=== PATIENT | male | born 1935 | race Caucasian/White ===

== ENCOUNTER 2023-02-24 10:39 | Inpatient (IN) | payer MEDICARE, SELFPAY ==
[2023-02-24] VITALS (47 sets, daily range): BP systolic 85–166; BP diastolic 41–95; PULSE 61–107; RESP 14–40; TEMP 36.8–36.9; O2SAT 93–98
--- NOTE | 2023-02-24 10:45 | RT.EKG_ITS ---
APPROVED REPORT Exam: Resting ECG Reason for Exam: abd pain Patient Location: E HR:70 bpm ECG Measurements Heart Rate 70 [place] CO [id number] P [id number] QRSd 148 QRS -49 QT 471 T 67 QTc 508 Conclusion Afib/flutter and ventricular-paced rhythm...V-paced rhythm, A-rate>240
--- NOTE | 2023-02-24 10:59 | ED.GENADUL_ITS ---
Discharge Plan Disposition Patient Disposition: Admit to [facility] Discharge Details Clinical Impression: Choledocholithiasis with obstruction, Pancreatitis due to biliary obstruction Admit Date/Time: 02/24/23 14:20 Admit Provider: Olga Ruiz Attending Provider: Olga Ruiz Primary Care Provider: Unknown,Unknown ED Provider: Delmar Leon Discharge Data Discharge Date/Time-TO BE ENTERED AT DEPARTURE: 02/24/23 15:50 Medical Decision Making Patient presenting to the emergency department for chief complaint of abdominal pain. Patient reports over the past couple weeks intermittently he will get chills and nausea and have waves of abdominal pain. Only other associated symptom is some shortness of breath. Patient has history of hypertension, CHF, pacemaker, hyperlipidemia. Patient denies any vomiting, fever chills, urinary symptoms, chest pain or syncope. Physical exam shows slightly tachypneic patient, not hypoxic, mid abdominal tenderness with some guarding. Hypoactive bowel sounds, otherwise unremarkable exam. We will plan on checking labs, EKG, and CT imaging once labs are reviewed. Pending results will give Zofran and a little bit of morphine. Please see physician interpretation for full interpretation of EKG but upon my review patient is in a paced rhythm with underlying A-fib or flutter. Otherwise nondiagnostic EKG. pacemaker was interrogated and shows no worrisome events and that patient has underlying A-fib and flutter. Reviewed labs and patient does have a slight leukocytosis with WBC of 11.86 and elevated neutrophils. CMP shows normal electrolytes except for low mag at 1.5. Anion gap slightly elevated at 11.7 BUN of 24. Of significant concern though is patient's total bilirubin of 7.9, AST of 332, ALT of 242, and alk phos of 457, albumin is low at 3.2 and lipase is elevated at 375. Troponin is negative/nondetected. Will perform CT imaging of abd. patient was reassessed and did state significant improvement after Zofran and morphine. Did discuss alcohol use with patient and he denies any excessive use and states very minimal use. Review of CT imaging and radiologist interpretation shows significant finding of choledocholithiasis with a common bile duct stone measuring 9 mm. Will speak with general surgeon in regards to patient's case. Spoke with Dr. Ruiz general surgery who agreed to have patient admitted. Patient is in agreement with this plan of care. Patient was informed that there is high likelihood he will need to go to tertiary care center for an ERCP Imaging Data Radiologic Study: Imaging: CT Scan Radiologist's impression: Exam(s) PROCEDURE INFORMATION: Exam: CT Abdomen And Pelvis With Contrast Exam date and time: 02/24/2023 12:01 PM Age: 87 years old Clinical indication: Other: Abdominal pain, elevated lft's and lipase TECHNIQUE: Imaging protocol: Computed tomography of the abdomen and pelvis with contrast. Radiation optimization: All CT scans at this facility use at least one of these dose optimization techniques: automated exposure control; mA and/or kV adjustment per patient size (includes targeted exams where dose is matched to clinical indication); or iterative reconstruction. Contrast material: OMNI 350; Contrast volume: 100 ml; Contrast route: INTRAVENOUS (IV); COMPARISON: No relevant prior studies available. FINDINGS: Lungs: Mild left lower lobe atelectasis. Heart: Heart size is normal. No pericardial effusion. Pacemaker leads in the right heart. Mitral annular and aortic valvular calcifications. Liver: Mild left intrahepatic and common bile duct dilatation measuring up to 10 mm. Possible stone measuring 8 mm in the distal common bile duct. No hepatic mass. Gallbladder and bile ducts: Multiple gallbladder polyps versus layering gallstones. Study is somewhat limited due to motion artifact limiting evaluation of the gallbladder. No large pericholecystic fluid collection. Pancreas: No significant peripancreatic fat stranding or pseudocyst. Spleen: Lobular spleen with small calcified granulomas. Small volume of perisplenic fluid. No splenomegaly. Adrenal glands: Normal. No mass. Kidneys and ureters: Bilateral symmetric renal parenchymal contrast enhancement. No CT evidence for pyelonephritis. Stomach and bowel: Sigmoid diverticulosis without evidence for acute diverticulitis. Appendix: Appendix is normal in caliber. No periappendiceal edema. No findings to suggest acute appendicitis. Intraperitoneal space: See Kidneys and ureters finding. Vasculature: Unremarkable. No abdominal aortic aneurysm. Lymph nodes: Unremarkable. No enlarged lymph nodes. Urinary bladder: Unremarkable as visualized. Reproductive: Unremarkable as visualized. Bones/joints: Severe right hip osteoarthritis. No lytic or blastic osseous lesion. Soft tissues: Small fat only containing left inguinal hernia. No adjacent bowel involvement. IMPRESSION: 1. Possible choledocholithiasis with the distal common bile duct stone measuring 9 mm. Recommend follow-up right upper quadrant ultrasound and/or ERCP. 2. Small volume of perisplenic fluid of indeterminate significance. Comparison with prior studies recommended to determine chronicity. Lab Data Lab results reviewed: Yes I reviewed the patient's lab results. HPI General Mode of arrival: ambulatory . Date/Time Provider Initiated Documentation: 02/24/23 10:47 . Limitations to Documentation: no limitations . Information obtained by: patient, family and RN notes reviewed . History of Present Illness 87 year old M presents to the emergency department with the chief complaint of Abdominal pain, described as moderate, Quality is described as aching and sharp, and is localized to the abdomen. Patient reports no radiation. Patient started experiencing this week(s) (2) and it has been intermittent. No relieving factors improve symptom(s), No exacerbating factors reported . Patient did receive the following treatments prior to arrival, NSAID Related Data Home Medications Medication Instructions Recorded Confirmed acetaminophen 500 mg tablet 500 mg PO BID 06/16/15 02/24/23 (Tylenol Extra Strength) ascorbic acid (vitamin C) 1,000 mg 1,000 mg PO DAILY 06/16/15 02/24/23 tablet,extended release (Vitamin C ER) aspirin 81 mg chewable tablet 81 mg PO DAILY 06/16/15 02/24/23 calcium carbonate 500 mg calcium 1,500 mg PO DAILY 06/16/15 07/01/15 (1,250 mg) tablet (Calcium 500) ibuprofen 200 mg capsule 400 mg PO BID 06/16/15 02/24/23 multivitamin (Men's Multi-Vitamin 1 ea PO DAILY 06/16/15 02/24/23 tablet) simvastatin 20 mg tablet 20 mg PO HS 06/16/15 02/24/23 Allergies Allergy/AdvReac Type Severity Reaction Status Date / Time No Known Drug Allergies Allergy Unknown Other (See Unverified 02/24/23 15:47 Comment) General Stated Complaint: Abd Prob SAMUEL: 3 Review of Systems Constitutional Constitutional: Reports chills and Denies fever(s) Cardiovascular Cardiovascular: Denies chest pain and Reports dyspnea Respiratory Respiratory: Denies cough and Reports dyspnea Gastrointestinal Gastrointestinal: Reports as per HPI, Reports abdominal pain, Denies melena, Denies change in bowel habits, Denies constipation, Denies diarrhea, Reports nausea and Denies vomiting Genitourinary Genitourinary: Denies hematuria, Denies difficulty urinating, Denies urinary hesitancy, Denies urinary incontinence and Denies urinary urgency Integumentary/Breasts Skin/Breast: Denies rash PFSH All Active Problems (Updated 02/25/23 @ 08:07 by Delmar Leon NP) Pancreatitis due to biliary obstruction (Acute) Choledocholithiasis with obstruction (Acute) Hyperlipidemia (Acute) Hypertension (Chronic) CHF (congestive heart failure) (Chronic) Pacemaker (Acute) Social History Smoking/Tobacco Use Status: Former Tobacco Use Smoking risk assessment performed?: Yes Alcohol Intake: current Alcohol Intake frequency: holidays/special occasions only Alcohol type: other Drug use: Never Substance use type: does not use Housing: house Exam Const General: cooperative Orientation: alert, awake and oriented x3 Resp Effort & Inspection: able to speak in complete sentences, not labored and tachypneic Auscultation: clear to auscultation bilaterally Cardio Rate: regular rate Rhythm: abnormal rhythm irregularly irregular Heart Sounds: S1 normal and S2 normal GI Palpation: soft, not firm, guarding (mid abd ), no masses, no pulsatile masses, not rigid and tender periumbilically Auscultation: hypoactive bowel sounds Back/Spine/Pelvis Back: no CVA tenderness Neuro General: patient alert, patient awake, patient oriented x3, gait normal and moves all extremities Course Vital Signs Vital signs: Vital Signs Temperature 36.8 C 02/24/23 10:42 Pulse 89 02/24/23 10:42 Respiratory Rate 24 02/24/23 10:42 Blood Pressure 166/80 H 02/24/23 10:42 Pulse Oximetry 93 02/24/23 10:42 Temperature 36.8 C 02/24/23 10:42 Temperature Source Tympanic 02/24/23 10:42 Pulse 89 02/24/23 10:42 Respiratory Rate 24 02/24/23 10:42 Respiratory Effort Normal 02/24/23 10:47 Blood Pressure 166/80 H 02/24/23 10:42 Blood Pressure Position Sitting 02/24/23 10:42 Pulse Oximetry 93 02/24/23 10:42 Oxygen Delivery Method Room Air 02/24/23 10:42 Oxygen Flow Rate 0 02/24/23 10:42 Pain Level 8 02/24/23 10:42
[2023-02-24 11:10] LABS: Abs Immature Grans 0.05 10^3/uL (0.0-0.06); Absolute Eosinophil Count 0.04 10^3/uL (0.0-0.7); Absolute Lymphocyte Count 2.02 10^3/uL (1.2-3.4); Absolute Monocyte Count 0.77 10^3/uL (0.1-0.8); Absolute Neutrophil Count 8.95 10^3/uL (1.2-6.7); Basophils % 0.3; Eosinophils % 0.3; HCT 40.9 % (40.0-50.0); HGB 13.7 g/dL (13.5-17.5); Immature Grans % 0.4; MCH 28.8 pg (27.0-33.0); MCHC 33.5 % (32.0-36.0); MCV 86 fL (80-95); MPV 9.5 fL (8.0-11.0); Monocytes % 6.5; Neutrophils % 75.5; Platelet Count 296 10^3/uL (130-400); RBC 4.76 10^6/uL (4.36-5.78); RDW 15.1 % (11.8-14.1); RDW-SD 47.8 fL; WBC 11.86 10^3/uL (4.4-10.8)
[2023-02-24] MEDS: MORPHine 10 MG/ML VIAL 2 MG IVP (11:12)
[2023-02-24] MEDS: Ondansetron 4 MG/2 ML VIAL IVP (11:13)
[2023-02-24 11:14] LABS: Absolute Basophil Count 0.04 10^3/uL (0.0-0.2)
[2023-02-24 11:29] LABS: ALT 242 U/L (16-63); AST 332 U/L (15-37); Albumin 3.2 g/dL (3.4-5.0); Alkaline Phosphatase 457 U/L (46-116); Anion Gap 11.7 mmol/L (3-11); BUN 24 mg/dL (7-18); Bilirubin, Total 7.9 mg/dL (0.2-1.0); CO2 24.3 mmol/L (21.0-32.0); CREATININE 1.3 mg/dL (0.70-1.30); Chloride 102 mmol/L (98-107); Glucose 124 mg/dL (74-106); Magnesium 1.5 mg/dL (1.8-2.4); Potassium 4.1 mmol/L (3.5-5.1); Sodium 138 mmol/L (136-145); Total Protein 7.9 g/dL (6.4-8.2); Troponin I < 50 ng/L (<or=60)
--- NOTE | 2023-02-24 11:30 | DI.CT_ITS ---
Exam(s) CT ABDOMEN PELVIS W EXAM: CT ABDOMEN PELVIS W CLINICAL HISTORY: Abdominal pain, elevated LFTs and lipase. TECHNIQUE: Imaging Protocol: Axial computed tomography images with coronal and sagittal reformatted images were created and reviewed CONTRAST MATERIAL: Intravenous: Omnipaque 350 Contrast volume:100 ml Oral: / no COMPARISON: No exams were available for comparison FINDINGS: Exam limited by patient motion. ABDOMEN: Lung Bases: Pacemaker leads. Mitral valve calcification. Heart size normal. Liver: Normal density. No measurable mass. Gallbladder and biliary tract: 18 by 14 millimeter stone seen in the distal common bile duct causing dilatation of the common bile duct and intrahepatic ducts. Few additional stones are noted in the ga llbladder. The gallbladder is mildly distended and shows mild wall thickening although the evaluatio n is limited due to motion in this area. Pancreas: Normal density, no abnormal calcifications. No visible inflammatory process. Limited eval uation due to motion. No pancreatic ductal dilatation. Spleen: Calcified granulomas. Small amount of perisplenic fluid which could be a chronic finding. Kidneys: Normal size, contour and axis. No radiodense stones or obstructive uropathy. No suspicious m asses seen. Adrenal glands: No masses seen. Abdominal Aorta: Abdominal portion non-dilated. Prominent atherosclerotic calcifications. Soft tissues: Small fatty containing left inguinal hernia. PELVIS: Bladder: No gross wall thickening. No calculi.No focal mass. Small small right superior diverticulu m. Bowel: No obstruction. Sigmoid diverticulosis. No bowel wall thickening. Appendix normal. Peritoneal cavity: No ascites, collection or mesenteric inflammatory response. Bones: End-stage degenerative changes of the right hip. Advanced degenerative disc changes. Reproductive organs: Prostate slightly enlarged. Lymph nodes: Unremarkable. Impression: Obstructing common bile duct stone measuring 8 x 14 millimeters. Mild gallbladder wall thickening an d additional small gallbladder calculi. Pancreas unremarkable. RADIATION DOSE DELIVERED: Total DLP DATA REPOSITORY: All CT scans at this facility are submitted to the National Radiology Data Registry (NRDR) Dose Index Registry (DIR) with the [employer] (ACR). RADIATION OPTIMIZATION: All CT scans at this facility use at least one of these dose optimization te chniques: automated exposure control; mA and/or kV adjustment per patient size (includes targeted exa ms where dose is matched to clinical indication); or iterative reconstruction.
[2023-02-24 11:34] LABS: Lipase > 375 U/L (16-77)
[2023-02-24] MEDS: Normal Saline Flush 10 ML SYR IVP ×2 (11:56→20:54)
[2023-02-24] MEDS: Normal Saline - Diluent 50 ML VIAL IJ (11:57)
[2023-02-24] MEDS: Omnipaque 350 MG/ML 100 ML BTL IJ (11:57)
--- NOTE | 2023-02-24 13:08 | DI.VRAD_ITS ---
PROCEDURE INFORMATION: Exam: CT Abdomen And Pelvis With Contrast Exam date and time: 02/24/2023 12:01 PM Age: 87 years old Clinical indication: Other: Abdominal pain, elevated lft's and lipase TECHNIQUE: Imaging protocol: Computed tomography of the abdomen and pelvis with contrast. Radiation optimization: All CT scans at this facility use at least one of these dose optimization techniques: automated exposure control; mA and/or kV adjustment per patient size (includes targeted exams where dose is matched to clinical indication); or iterative reconstruction. Contrast material: OMNI 350; Contrast volume: 100 ml; Contrast route: INTRAVENOUS (IV); COMPARISON: No relevant prior studies available. FINDINGS: Lungs: Mild left lower lobe atelectasis. Heart: Heart size is normal. No pericardial effusion. Pacemaker leads in the right heart. Mitral annular and aortic valvular calcifications. Liver: Mild left intrahepatic and common bile duct dilatation measuring up to 10 mm. Possible stone measuring 8 mm in the distal common bile duct. No hepatic mass. Gallbladder and bile ducts: Multiple gallbladder polyps versus layering gallstones. Study is somewhat limited due to motion artifact limiting evaluation of the gallbladder. No large pericholecystic fluid collection. Pancreas: No significant peripancreatic fat stranding or pseudocyst. Spleen: Lobular spleen with small calcified granulomas. Small volume of perisplenic fluid. No splenomegaly. Adrenal glands: Normal. No mass. Kidneys and ureters: Bilateral symmetric renal parenchymal contrast enhancement. No CT evidence for pyelonephritis. Stomach and bowel: Sigmoid diverticulosis without evidence for acute diverticulitis. Appendix: Appendix is normal in caliber. No periappendiceal edema. No findings to suggest acute appendicitis. Intraperitoneal space: See Kidneys and ureters finding. Vasculature: Unremarkable. No abdominal aortic aneurysm. Lymph nodes: Unremarkable. No enlarged lymph nodes. Urinary bladder: Unremarkable as visualized. Reproductive: Unremarkable as visualized. Bones/joints: Severe right hip osteoarthritis. No lytic or blastic osseous lesion. Soft tissues: Small fat only containing left inguinal hernia. No adjacent bowel involvement. IMPRESSION: 1. Possible choledocholithiasis with the distal common bile duct stone measuring 9 mm. Recommend follow-up right upper quadrant ultrasound and/or ERCP. 2. Small volume of perisplenic fluid of indeterminate significance. Comparison with prior studies recommended to determine chronicity. Dictated and Authenticated by: Roge Soler MD. Ordering:DAVIN Jacobsen MD
[2023-02-24 14:02] LABS: Bilirubin Large (Negative); Blood Negative (Negative); Clarity Clear (Clear); Glucose Negative (Negative); Ketones Negative (Negative); Leukocyte Esterase Negative (Negative); Nitrite Negative (Negative); Specific Gravity <= 1.005 (1.005-1.025); pH 5.5 (5-8)
[2023-02-24 14:16] LABS: Bacteria Rare HPF (Negative); C & S Indicated? No; Casts Negative LPF (Negative); Crystals Moderate Uric Acid HPF (Negative); Epithelial Cells Rare HPF (Negative); Mucus Negative (Negative); RBC 0-2 HPF (0-2); WBC 0-2 HPF (0-5)
[2023-02-24] MEDS: PIPERACILLIN/TAZO 3.375 GM in Normal Saline 50 ML IVPB ×2 (15:43→20:54)
[2023-02-24] MEDS: Pantoprazole 40 MG VIAL IVP (15:43)
[2023-02-24] MEDS: Lactated Ringers 1,000 ML 125 ML IV (16:34)
[2023-02-24] MEDS: Enoxaparin 40 MG/0.4 ML SYR SC (16:34)
--- NOTE | 2023-02-24 16:38 | W.PM.HP.N ---
Date of service: 02/24/23 Time of Service: 16:39 Assessment and Plan Assessment and plan (1) Choledocholithiasis with obstruction: Status: Acute Assessment and plan: Mr. Fleming is a pleasant 87 year old male admitted with Gallstone pancreatitis and Choledocholithiasis. P: 1. Diet: Clears only for now 2. Supportive care with some hydration and pain control 3. Case discussed with GI AT [facility] [place] They asked for patient to be made NPO after midnight on Sunday for possible ERCP on Sunday. If patient deteriorates clinically or his T.Bili continues to rise then I will call GI back 4. Antibiotics Paln discussed with patient. he is in agreement (2) Pancreatitis due to biliary obstruction: Status: Acute (3) CHF (congestive heart failure): Status: Chronic History of Present Illness Consults Consult date: 02/24/23 Requesting physician: Delmar Leon Narrative: Mr. Fleming is a pleasant 87 year old male who comes in to the ER today with a couple of weeks of abdominal pain. He had one episode of N/V today. He has had no changes in bowel habits. Work up in the ER revealed a slight elevation in his WBC count. LFT's are moderately elevated and his bilirubin is very high at >8. He denies fevers or chills at home. CT scan of his abdomen and pelvis was done. I reviewedc the CT scan myself. It showed dilated intrahepatic ducts, elevated CBD with a stone at the distal end of the CBD. No fat starnding around the pancreas and no pseudocyst. 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 He has HTN listed on his problem list but he doesnt take any medication for it. Review of Systems Constitutional Constitutional: Reports anorexia, Denies fever(s), Denies headache(s) and Denies weight loss Eyes Eyes: Denies change in vision ENT Ears, Nose, Mouth, and Throat: Denies dysphagia and Denies headache(s) Cardiovascular Cardiovascular: Denies chest pain, Denies chest pain at rest, Denies irregular heart rhythm, Denies palpitations, Denies dyspnea and Denies dyspnea on exertion Respiratory Respiratory: Denies cough, Denies dyspnea and Denies dyspnea on exertion Gastrointestinal Gastrointestinal: Reports system reviewed and no additional complaints, except as documented and Denies dysphagia Genitourinary Genitourinary: Reports nocturia Musculoskeletal Musculoskeletal: Reports system reviewed and no additional complaints, except as documented Integumentary/Breasts Skin/Breast: Reports system reviewed and no additional complaints, except as documented Neurologic Neurologic: Reports system reviewed and no additional complaints, except as documented and Denies headache(s) Psychiatric Psychiatric: Reports system reviewed and no additional complaints, except as documented Endocrine Endocrine: Reports system reviewed and no additional complaints, except as documented and Denies palpitations Hematologic/Lymphatic Hematologic/Lymphatic: Reports system reviewed and no additional complaints, except as documented Allergic/Immunologic Allergic/Immunologic: Reports system reviewed and no additional complaints, except as documented PFSH All Active Problems (Updated 02/24/23 @ 16:47 by Olga Ruiz MD) Pancreatitis due to biliary obstruction (Acute) Choledocholithiasis with obstruction (Acute) Hyperlipidemia (Acute) Hypertension (Chronic) CHF (congestive heart failure) (Chronic) Pacemaker (Acute) Social History Smoking/Tobacco Use Status: Former Tobacco Use Smoking risk assessment performed?: Yes Alcohol Intake: current Alcohol Intake frequency: holidays/special occasions only Alcohol type: other Drug use: Never Substance use type: does not use Housing: house Meds Allergies and Home Medications Allergies Allergy/AdvReac Type Severity Reaction Status Date / Time No Known Drug Allergies Allergy Unknown Other (See Unverified 02/24/23 15:47 Comment) Home Medications Medication Instructions Recorded Confirmed Type acetaminophen 500 mg tablet 500 mg PO BID 06/16/15 02/24/23 History (Tylenol Extra Strength) ascorbic acid (vitamin C) 1,000 mg 1,000 mg PO DAILY 06/16/15 02/24/23 History tablet,extended release (Vitamin C ER) aspirin 81 mg chewable tablet 81 mg PO DAILY 06/16/15 02/24/23 History calcium carbonate 500 mg calcium 1,500 mg PO DAILY 06/16/15 07/01/15 History (1,250 mg) tablet (Calcium 500) ibuprofen 200 mg capsule 400 mg PO BID 06/16/15 02/24/23 History multivitamin (Men's Multi-Vitamin 1 ea PO DAILY 06/16/15 02/24/23 History tablet) simvastatin 20 mg tablet 20 mg PO HS 06/16/15 02/24/23 History Exam Const General: cooperative, comfortable and no acute distress Nutritional Appearance: overweight Orientation: alert and oriented x3 HENMT Head: normocephalic and atraumatic Resp Effort & Inspection: normal respiratory effort Auscultation: clear to auscultation bilaterally Cardio Rate: regular rate Rhythm: regular rhythm GI Inspection: normal to inspection Palpation: soft, no hepatosplenomegaly and tender (with voluntary guarding) in the RUQ Results Imaging Abdomen CT scan report/results: report reviewed and image reviewed CT scan - pelvis: report reviewed and image reviewed Labs 02/24/23 11:00 02/24/23 11:00 Labs: Laboratory Results - last 24 hr 02/24/23 02/24/23 02/24/23 11:00 11:00 13:55 WBC 11.86 H RBC 4.76 Hgb 13.7 Hct 40.9 MCV 86 MCH 28.8 MCHC 33.5 RDW 15.1 H Plt Count 296 MPV 9.5 Immature Gran % 0.4 Neutrophils % 75.5 Lymphocytes % 17.0 Monocytes % 6.5 Eosinophils % 0.3 Basophils % 0.3 Nucleated RBC % 0.0 Absolute Neutrophils 8.95 H Absolute Lymphocytes 2.02 Absolute Monocytes 0.77 Absolute Eosinophils 0.04 Absolute Basophils 0.04 Sodium 138 Potassium 4.1 Chloride 102 Carbon Dioxide 24.3 Anion Gap 11.7 H BUN 24 H Creatinine 1.3 Est GFR (CKD-EPI 2020) 53.50 Glucose 124 H Calcium 9.0 Magnesium 1.5 L Total Bilirubin 7.9 H AST 332 H ALT 242 H Alkaline Phosphatase 457 H Troponin I < 50 Total Protein 7.9 Albumin 3.2 L Lipase > 375 H Urine Color Yellow Urine Clarity Clear Urine pH 5.5 Ur Specific Webster <= 1.005 Urine Protein Trace H Urine Ketones Negative Urine Blood Negative Urine Nitrite Negative Urine Bilirubin Large H Urine Urobilinogen 1.0 H Ur Leukocyte Esterase Negative Urine RBC 0-2 Urine WBC 0-2 Ur Epithelial Cells Rare Urine Crystals Moderate Uric Acid Urine Bacteria Rare Urine Casts Negative Urine Mucus Negative Ur Culture Indicated? No Urine Glucose Negative Last Vital Signs Temp 98.4 F 02/24/23 16:07 Pulse 85 02/24/23 16:07 Resp 16 02/24/23 16:07 BP 96/56 L 02/24/23 16:07 Pulse Ox 96 02/24/23 16:07 Time Spent Time spent with Patient: 55-74 minutes Time was spent: preparing to see the patient(eg.review tests), obtaining and/or reviewing separately otained hiistory, ordering medications,tests, procedures, referring, communicating with other health critical care clinical nurse specialist, indepentently interpreting results, counseling the patient and care coordination
[2023-02-24 17:50] LABS: Troponin I < 50 ng/L (<or=60)
[2023-02-24] MEDS: MAGNESIUM SULFATE 2 GM/50 ML BAG IVPB (21:44)
[2023-02-24] MEDS: MORPHine 2 MG/ML SYR IVP (22:00)
[2023-02-25] MEDS: PIPERACILLIN/TAZO 3.375 GM in Normal Saline 50 ML IVPB ×4 (02:36→20:03)
[2023-02-25] MEDS: Normal Saline Flush 10 ML SYR IVP ×5 (02:41→20:04)
[2023-02-25] MEDS: Lactated Ringers 1,000 ML 125 ML IV ×2 (03:31→12:37)
[2023-02-25 04:50] VITALS: BP 115/68; PULSE 81; RESP 16; TEMP 37; O2SAT 94
[2023-02-25 06:31] LABS: Abs Immature Grans 0.02 10^3/uL (0.0-0.06); Absolute Basophil Count 0.02 10^3/uL (0.0-0.2); Absolute Eosinophil Count 0.07 10^3/uL (0.0-0.7); Absolute Lymphocyte Count 0.99 10^3/uL (1.2-3.4); Absolute Monocyte Count 0.83 10^3/uL (0.1-0.8); Absolute Neutrophil Count 6.06 10^3/uL (1.2-6.7); Basophils % 0.3; Eosinophils % 0.9; HCT 33.8 % (40.0-50.0); HGB 11.4 g/dL (13.5-17.5); Immature Grans % 0.3; Lymphocytes % 12.4; MCH 28.7 pg (27.0-33.0); MCHC 33.7 % (32.0-36.0); MCV 85 fL (80-95); MPV 9.8 fL (8.0-11.0); Monocytes % 10.4; Neutrophils % 75.7; Platelet Count 228 10^3/uL (130-400); RBC 3.97 10^6/uL (4.36-5.78); RDW 15.3 % (11.8-14.1); RDW-SD 47.8 fL; WBC 7.99 10^3/uL (4.4-10.8)
[2023-02-25 06:59] LABS: ALT 173 U/L (16-63); AST 221 U/L (15-37); Albumin 2.3 g/dL (3.4-5.0); Alkaline Phosphatase 357 U/L (46-116); Anion Gap 8.3 mmol/L (3-11); BUN 20 mg/dL (7-18); Bilirubin, Total 6.8 mg/dL (0.2-1.0); CO2 25.7 mmol/L (21.0-32.0); CREATININE 1.2 mg/dL (0.70-1.30); Calcium 8.4 mg/dL (8.5-10.1); Chloride 105 mmol/L (98-107); Estimated GFR 58.89 (mL/min/1.73m2); Glucose 90 mg/dL (74-106); Lipase 111 U/L (16-77); Potassium 3.9 mmol/L (3.5-5.1); Sodium 139 mmol/L (136-145); Total Protein 5.9 g/dL (6.4-8.2)
[2023-02-25 07:13] VITALS: BP 118/68; PULSE 65; RESP 16; TEMP 36.5; O2SAT 93
--- NOTE | 2023-02-25 12:16 | PDOC.CMIN ---
Date of service: 02/25/23 Time of Service: 12:17 Care Management Initial Assmt Initial Assessment REASON FOR HOSPITALIZATION:: Gallstone pancreatitis, choledocholithiasis PREVIOUS FUNCTIONAL STATUS/SOCIAL/FAMILY SUPPORTS:: Ramírez lives in [place] with his , Farzaneh. They have two children, one who lives with them, and the other lives nearby. He is independent at baseline. CURRENT FUNCTIONAL STATUS:: Ramírez was lying in bed when CM met with him. He reported that he feels good today. He was pleasant and engaged in conversation, although he is hard of hearing. He spoke highly of Dr. Zuñiga, who has helped his in the past, which is why he chose to come to [facility]. Per MD, Ramírez will likely go to [facility] down and back for an ERCP tomorrow. Ramírez stated that he is hoping to be discharged home after that trip, with outpatient follow up. CM will continue to follow. ADVANCE DIRECTIVES:: Not on file; CM will offer forms. Has patient been provided with info about the portal/API?: Yes Did the patient sign up for the portal?: No CODE STATUS:: Full Code INSURANCE COVERAGE / FINANCIAL ISSUES:: [employer] M[employer] replacement CURRENT HOME/COMMUNITY SERVICES/EQUIPMENT:: No known services. FWW. PRIMARY CARE PHYSICIAN:: Cordell Bailey. He is unsure which provider, as his recently left the practice. POTENTIAL DISCHARGE NEEDS:: Evaluations for further needs, follow up appointments. PATIENT/FAMILY EDUCATION NEEDS:: Review discharge instructions and limitations, discussion of self care needs including ask me three. ANTICIPATED BARRIERS TO DISCHARGE:: None identified. TRANSPORTATION:: Via private vehicle by his . PLAN:: Anticipate Ramírez will return home once medically cleared. His will drive him home via private vehicle. He will follow up with his PCP and discharge plan of care. CM will continue to follow. PFSH All Active Problems (Updated 02/25/23 @ 08:07 by Delmar Leon NP) Pancreatitis due to biliary obstruction (Acute) Choledocholithiasis with obstruction (Acute) Hyperlipidemia (Acute) Hypertension (Chronic) CHF (congestive heart failure) (Chronic) Pacemaker (Acute) Social History Smoking/Tobacco Use Status: Former Tobacco Use Smoking risk assessment performed?: Yes Alcohol Intake: current Alcohol Intake frequency: holidays/special occasions only Alcohol type: other Drug use: Never Substance use type: does not use Housing: house
--- NOTE | 2023-02-25 12:38 | W.PM.PROGNOT ---
Date of Service Date of service: 02/25/23 Time of Service: 12:38 Assessment and Plan Assessment and plan (1) Choledocholithiasis with obstruction: Status: Acute Assessment and plan: Mr. Fleming is a pleasant 87 year old male admitted with Gallstone pancreatitis and Choledocholithiasis. he is PAD #1 P: 1. Diet: Clears. NPO after midnight for possible transfer to [facility] for ERCP tomorrow 2. Continue supportive care. Will decrease IV fluids to 30cc/hr until midnight and then will increase to 80 cc/hr 3. Case discussed with GI AT [facility]. They asked for patient to be made NPO after midnight on Sunday for possible ERCP on Sunday. If patient deteriorates clinically or his T.Bili continues to rise then I will call GI back 4. Antibiotics- continue Zosyn 5. DVT prophilaxis- Lovenox and SCD's. Will hold Lovenox tomorrow morning 6. GI prophilaxis- Protonix IV 7. Will start on stool softeners Plan discussed with patient. He is in agreement with the plan (2) Pancreatitis due to biliary obstruction: Status: Acute (3) CHF (congestive heart failure): Status: Chronic Subjective Subjective Interval history since last seen: Ramírez is feeling well today. His pain is well controlled. He has had no N/V. He is tolerating clear liquids. Labs show decreased in his Lipase to 111. Wbc is normal. T. Bili is slightly decreased to 6.8 from 7.9. Electrolites are normal today. No BM on this admission Exam Const General: cooperative, comfortable and no acute distress Nutritional Appearance: overweight Orientation: alert and oriented x3 HENPA Head: normocephalic and atraumatic Other: Jaundiced Resp Effort & Inspection: normal respiratory effort Auscultation: clear to auscultation bilaterally Cardio Rate: regular rate Rhythm: regular rhythm GI Inspection: normal to inspection Palpation: soft, no hepatosplenomegaly and nontender Auscultation: normal bowel sounds Objective Last Vital Signs Temp 97.7 F 02/25/23 07:13 Pulse 65 02/25/23 07:13 Resp 16 02/25/23 07:13 BP 118/68 02/25/23 07:13 Pulse Ox 93 02/25/23 07:13 Laboratory Results - last 24 hr 02/24/23 02/24/23 02/25/23 13:55 17:15 06:05 WBC RBC Hgb Hct MCV MCH MCHC RDW Plt Count MPV Immature Gran % Neutrophils % Lymphocytes % Monocytes % Eosinophils % Basophils % Nucleated RBC % Absolute Neutrophils Absolute Lymphocytes Absolute Monocytes Absolute Eosinophils Absolute Basophils Sodium 139 Potassium 3.9 Chloride 105 Carbon Dioxide 25.7 Anion Gap 8.3 BUN 20 H Creatinine 1.2 Est GFR (CKD-EPI 2020) 58.89 Glucose 90 Calcium 8.4 L Magnesium Total Bilirubin 6.8 H AST 221 H ALT 173 H Alkaline Phosphatase 357 H Troponin I < 50 Total Protein 5.9 L Albumin 2.3 L Lipase 111 H Urine Color Yellow Urine Clarity Clear Urine pH 5.5 Ur Specific [place] <= 1.005 Urine Protein Trace H Urine Ketones Negative Urine Blood Negative Urine Nitrite Negative Urine Bilirubin Large H Urine Urobilinogen 1.0 H Ur Leukocyte Esterase Negative Urine RBC 0-2 Urine WBC 0-2 Ur Epithelial Cells Rare Urine Crystals Moderate Uric Acid Urine Bacteria Rare Urine Casts Negative Urine Mucus Negative Ur Culture Indicated? No Urine Glucose Negative 02/25/23 02/25/23 06:05 06:05 WBC 7.99 RBC 3.97 L Hgb 11.4 L D Hct 33.8 L MCV 85 MCH 28.7 MCHC 33.7 RDW 15.3 H Plt Count 228 MPV 9.8 Immature Gran % 0.3 Neutrophils % 75.7 Lymphocytes % 12.4 Monocytes % 10.4 Eosinophils % 0.9 Basophils % 0.3 Nucleated RBC % 0.0 Absolute Neutrophils 6.06 Absolute Lymphocytes 0.99 L Absolute Monocytes 0.83 H Absolute Eosinophils 0.07 Absolute Basophils 0.02 Sodium Potassium Chloride Carbon Dioxide Anion Gap BUN Creatinine Est GFR (CKD-EPI 2020) Glucose Calcium Magnesium 2.0 Total Bilirubin AST ALT Alkaline Phosphatase Troponin I Total Protein Albumin Lipase Urine Color Urine Clarity Urine pH Ur Specific [place] Urine Protein Urine Ketones Urine Blood Urine Nitrite Urine Bilirubin Urine Urobilinogen Ur Leukocyte Esterase Urine RBC Urine WBC Ur Epithelial Cells Urine Crystals Urine Bacteria Urine Casts Urine Mucus Ur Culture Indicated? Urine Glucose Time Spent with Patient Time Spent with Patient: 25-34 minutes Time was spent: preparing to see the patient(eg.review tests), obtaining and/or reviewing separately [facility] hiistory, ordering medications,tests, procedures, indepentently interpreting results and counseling the patient
[2023-02-25] MEDS: ACETAMINOPHEN 1,000 MG/100 ML BTL 400 MG IVPB (13:19)
[2023-02-25] MEDS: Pantoprazole 40 MG VIAL IVP (14:25)
[2023-02-25] MEDS: Enoxaparin 40 MG/0.4 ML SYR SC (14:29)
[2023-02-25 15:44] VITALS: BP 122/62; PULSE 63; RESP 16; TEMP 38.2; O2SAT 93
[2023-02-25 16:08] VITALS: O2SAT 93
--- NOTE | 2023-02-25 19:35 | NUR.NOTE ---
Nursing Note: Stopped pts LR @ 1920 per MD verbal orders to charge. This contradicts progress notes as of 02/25. Will begin LR @ 80mls after 0000 on 02/26.
[2023-02-25] MEDS: MORPHine 2 MG/ML SYR IVP (21:24)
[2023-02-26] MEDS: Normal Saline Flush 10 ML SYR IVP ×2 (00:01→02:08)
[2023-02-26] MEDS: Lactated Ringers 1,000 ML 80 ML IV ×2 (00:02→20:28)
[2023-02-26 00:09] VITALS: BP 144/78; PULSE 76; RESP 16; TEMP 38.2; O2SAT 94
[2023-02-26] MEDS: PIPERACILLIN/TAZO 3.375 GM in Normal Saline 50 ML IVPB ×3 (02:08→20:24)
[2023-02-26 06:34] LABS: Abs Immature Grans 0.03 10^3/uL (0.0-0.06); Absolute Basophil Count 0.02 10^3/uL (0.0-0.2); Absolute Eosinophil Count 0.13 10^3/uL (0.0-0.7); Absolute Lymphocyte Count 1.65 10^3/uL (1.2-3.4); Absolute Monocyte Count 0.83 10^3/uL (0.1-0.8); Absolute Neutrophil Count 7.07 10^3/uL (1.2-6.7); Basophils % 0.2; Eosinophils % 1.3; HCT 34.2 % (40.0-50.0); HGB 11.8 g/dL (13.5-17.5); Immature Grans % 0.3; MCH 29.6 pg (27.0-33.0); MCHC 34.5 % (32.0-36.0); MCV 86 fL (80-95); MPV 10.1 fL (8.0-11.0); Monocytes % 8.5; Neutrophils % 72.7; Platelet Count 227 10^3/uL (130-400); RBC 3.98 10^6/uL (4.36-5.78); RDW-SD 47.5 fL; WBC 9.73 10^3/uL (4.4-10.8)
[2023-02-26 06:52] LABS: ALT 124 U/L (16-63); AST 112 U/L (15-37); Albumin 2.3 g/dL (3.4-5.0); Alkaline Phosphatase 335 U/L (46-116); BUN 13 mg/dL (7-18); Bilirubin, Total 3.8 mg/dL (0.2-1.0); CREATININE 1.1 mg/dL (0.70-1.30); Chloride 104 mmol/L (98-107); Estimated GFR 65.38 (mL/min/1.73m2); Glucose 89 mg/dL (74-106); Lipase 63 U/L (16-77); Potassium 3.7 mmol/L (3.5-5.1); Sodium 138 mmol/L (136-145); Total Protein 6.1 g/dL (6.4-8.2)
[2023-02-26 06:56] LABS: Calcium 8.4 mg/dL (8.5-10.1)
[2023-02-26 07:08] VITALS: BP 169/81; PULSE 64; RESP 16; TEMP 36.6; O2SAT 96
--- NOTE | 2023-02-26 09:07 | PGE_ITS ---
Date of Service Date of service: 02/26/23 Time of Service: 09:07 Assessment and Plan Assessment and plan (1) Pancreatitis due to biliary obstruction: Status: Acute Assessment and plan: lipase is nl (2) Choledocholithiasis with obstruction: Status: Acute Assessment and plan: LFT's are still high but trending down tbil is 3.8 (5.5 yest) NPO ERCP today (3) Hyperlipidemia: Status: Acute (4) Hypertension: Status: Chronic (5) CHF (congestive heart failure): Status: Chronic Assessment and plan: echo ordered for am (6) Pacemaker: Status: Acute Subjective Subjective Interval history since last seen: Pt seen adn examined. Feeling ok. He is still requiring pain meds regularly. no headaches. No CP or SOB. no productive cough. no dysuria. no leg pain or swelling. His last BM was prior to coming into the hospital. no N/v. Exam Const Other: PHYSICAL EXAM GENERAL APPEARANCE: Alert, healthy appearance, oriented, x 3,? in no acute distress HYDRATION: Well hydrated HEAD, EYES, EARS, NECK, THROAT: Head is normocephalic, pupils equal, round, reactive to light and accommodation, ocular movement intact, sclera clear and no jaundice. ?Dentition intact. LUNGS: normal respiration/normal chest excursion. ?Clear to auscultation bilaterally. ?No wheeze. ?HEART: Regular rate and rhythm. no murmurs EXTREMITY: No edema or cyanosis.? no leg pain, redness, swelling.? ABDOMEN: soft and non-tender to palpation.? Normal bowel sounds.? .? Objective Last Vital Signs Temp 36.6 C 02/26/23 07:08 Pulse 64 02/26/23 07:08 Resp 16 02/26/23 07:08 BP 169/81 H 02/26/23 07:08 Pulse Ox 96 02/26/23 07:08 Laboratory Results - last 24 hr 02/25/23 02/26/23 02/26/23 06:05 06:12 06:12 WBC 9.73 RBC 3.98 L Hgb 11.8 L Hct 34.2 L MCV 86 MCH 29.6 MCHC 34.5 RDW 15.0 H Plt Count 227 MPV 10.1 Immature Gran % 0.3 Neutrophils % 72.7 Lymphocytes % 17.0 Monocytes % 8.5 Eosinophils % 1.3 Basophils % 0.2 Nucleated RBC % 0.0 Absolute Neutrophils 7.07 H Absolute Lymphocytes 1.65 Absolute Monocytes 0.83 H Absolute Eosinophils 0.13 Absolute Basophils 0.02 Sodium 138 Potassium 3.7 Chloride 104 Carbon Dioxide 25.0 Anion Gap 9.0 BUN 13 Creatinine 1.1 Est GFR (CKD-EPI 2020) 65.38 Glucose 89 Calcium 8.4 L Magnesium 2.0 Total Bilirubin 3.8 H AST 112 H ALT 124 H Alkaline Phosphatase 335 H Total Protein 6.1 L Albumin 2.3 L Lipase 63 Basic Metabolic Sodium 138 mmol/L (136-145) 02/26/23 Potassium 3.7 mmol/L (3.5-5.1) 02/26/23 Chloride 104 mmol/L (98-107) 02/26/23 Carbon Dioxide 25.0 mmol/L (21.0-32.0) 02/26/23 BUN 13 mg/dL (7-18) 02/26/23 Creatinine 1.1 mg/dL (0.70-1.30) 02/26/23 Glucose 89 mg/dL (74-106) 02/26/23 CBC White Blood Count 9.73 10^3/uL (4.4-10.8) 02/26/23 Red Blood Count 3.98 10^6/uL (4.36-5.78) L 02/26/23 Hemoglobin 11.8 g/dL (13.5-17.5) L 02/26/23 Hematocrit 34.2 % (40.0-50.0) L 02/26/23 Mean Corpuscular Volume 86 fL (80-95) 02/26/23 Mean Corpuscular Hemoglobin 29.6 pg (27.0-33.0) 02/26/23 Mean Corpuscular Hemoglobin Concent 34.5 % (32.0-36.0) 02/13 11/05 Red Cell Distribution Width 15.0 % (11.8-14.1) H 02/26/23 Platelet Count 227 10^3/uL (130-400) 02/26/23 Mean Platelet Volume 10.1 fL (8.0-11.0) 02/26/23 Neutrophils % 72.7 02/26/23 Lymphocytes % 17.0 02/26/23 Monocytes % 8.5 02/26/23 Eosinophils % 1.3 02/26/23 Basophils % 0.2 02/26/23 Immature Granulocytes % 0.3 02/26/23 Comprehensive Metabolic Panel Sodium 138 mmol/L (136-145) 02/26/23 06:12 Potassium 3.7 mmol/L (3.5-5.1) 02/26/23 06:12 Chloride 104 mmol/L (98-107) 02/26/23 06:12 Carbon Dioxide 25.0 mmol/L (21.0-32.0) 02/26/23 06:12 BUN 13 mg/dL (7-18) 02/26/23 06:12 Creatinine 1.1 mg/dL (0.70-1.30) 02/26/23 06:12 Glucose 89 mg/dL (74-106) 02/26/23 06:12 Calcium 8.4 mg/dL (8.5-10.1) L 02/26/23 06:12 Total Bilirubin 3.8 mg/dL (0.2-1.0) H 02/26/23 06:12 ALT 124 U/L (16-63) H 02/26/23 06:12 AST 112 U/L (15-37) H 02/26/23 06:12 Alkaline Phosphatase 335 U/L (46-116) H 02/26/23 06:12 Total Protein 6.1 g/dL (6.4-8.2) L 02/26/23 06:12 Albumin 2.3 g/dL (3.4-5.0) L 02/26/23 06:12 Diabetes results Glucose 89 mg/dL (74-106) 02/26/23 BUN 13 mg/dL (7-18) 02/26/23 Creatinine 1.1 mg/dL (0.70-1.30) 02/26/23 Est GFR (CKD-EPI 2020) 65.38 (mL/min/1.73m2) 02/26/23 Sodium 138 mmol/L (136-145) 02/26/23 Potassium 3.7 mmol/L (3.5-5.1) 02/26/23 Chloride 104 mmol/L (98-107) 02/26/23 Carbon Dioxide 25.0 mmol/L (21.0-32.0) 02/26/23 Calcium 8.4 mg/dL (8.5-10.1) L 02/26/23 AST 112 U/L (15-37) H 02/26/23 ALT 124 U/L (16-63) H 02/26/23 Total Protein 6.1 g/dL (6.4-8.2) L 02/26/23 Albumin 2.3 g/dL (3.4-5.0) L 02/26/23 Time Spent with Patient Time Spent with Patient: 25-34 minutes Time was spent: preparing to see the patient(eg.review tests), obtaining and/or reviewing separately otained hiistory, ordering medications,tests, procedures, referring, communicating with other health health care sanitary technician, indepentently interpreting results, counseling the patient and care coordination
--- NOTE | 2023-02-26 09:30 | DI.US_ITS ---
APPROVED REPORT EXAM: Comprehensive 2D, Doppler, and color-flow Echocardiogram Patient Location: In-Patient Room/Bed: [address] Selector: Salomon Khan RDCS Indications: CHF, HTN, HYPERLIPIDEMIA, GALLSTONES, PACEMAKER Other Information Study Quality: Adequate Conclusion Normal left ventricular wall thickness and chamber size. Ejection fraction is 55 to 60%. Wall motio n is normal. Normal right ventricular size and function Both atria are normal in size Device lead noted in the right heart Aortic valve is mildly sclerotic and trileaflet without stenosis or regurgitation Mildly thickened mitral leaflets, mitral annular calcification, mild mitral regurgitation Normal tricuspid valve with mild regurgitation. 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 Wall motion Left Ventricle The left ventricle is normal size. The left ventricular systolic function is normal. The left ventric ular ejection fraction is within the normal range. There is normal left ventricular wall thickness. T here is normal LV segmental wall motion. There is no ventricular septal defect visualized. LVEF is 55 -60%. Right Ventricle The right ventricle is normal size. The right ventricular systolic function is normal. The RVSP is 37 .7 mmHg. Pacemaker lead is present in the right ventricle. Atria The left atrium size is normal. The right atrium size is normal. The interatrial septum is intact wit h no evidence for an atrial septal defect. Aortic Valve The Aortic valve is mildly sclerotic. Aortic valve is trileaflet. There is no aortic valvular stenosi s. No aortic regurgitation is present. Mitral Valve Mitral valve leaflets are mildly thickened. Moderate mitral annular calcification. No evidence of neymar ral valve stenosis. Mild mitral regurgitation. Tricuspid Valve The tricuspid valve is normal in structure. There is no tricuspid valve stenosis. Mild tricuspid regu rgitation. Pulmonic Valve The pulmonary valve is normal in structure. There is no pulmonic valvular stenosis. Mild pulmonic reg urgitation. Great Vessels The aortic root is normal in size. The ascending aorta is mildly dilated. Aortic arch is not well vis ualized. IVC is normal in size and collapses >50% with inspiration. Pericardium There is no pericardial effusion. 2D Dimensions IVSD d PLAX 1.01 cm M: 0.6-1.2 LV Vol A2C d MOD 110.8 mL LVPW d PLAX 1.00 cm M: 0.6 - 1.2 LV EF A2C MOD 61.5 % LVID d PLAX 4.45 cm M: 4.2 - 5.8 LVDs 3.10 cm M: 2.5 - 4.0 Ao Root d 3.45 cm M: 3.1 - 3.7 Ao Asc Diam d 3.60 cm M: 2.6 - 3.4 LV EF Teichholz 57.0 % FS 29.70 % LV Diastology E/A Ratio 0.7 MV E Vmax 1.21 (0.4-1.3 m/s) MV A Vmax 1.65 (0.4-1.3 m/s) Aortic Valve LVOT Vmax 1.25 m/s LVOT Peak Grad 6.3 mmHg LVOT Mean Grad 3.6 mmHg AoV Peak Grad 13.0 mmHg AoV Mean Grad 7.0 mmHg Mitral Valve MV DT 461 (160-240 msec) Pulmonary Valve PV Mean Grad 1.5 mmHg RVOT Peak Gr. 1.10 mmHg RVOT Mean Gr. 0.45 mmHg RVOT VTI 0.092 m RVOT Vmax 0.53 m/s Tricuspid Valve TR Peak Grad 34.7 mmHg RA Pressure 3.00 mmHg RVSP (TR) 37.7 mmHg
--- NOTE | 2023-02-26 10:22 | PDOC.CMPRO ---
Date of service: 02/26/23 Time of Service: 10:22 Care Management Progress Note Progress Note Text Progress Note Text: S/O: Ramírez was transported to [facility] for an ERCP procedure today, which he will go down and back for. Per report, Ramírez continues to have pain, but is feeling ok today. CM observed him walking in the bloom with PT this morning, prior to his departure. CM will continue to follow. A: Ramírez is an 87 year old male admitted to [facility] on 02/24/23 for gallstone pancreatitis. P:?Anticipate Ramírez will return home once medically cleared. His will drive him home via private vehicle. He will follow up with his PCP and discharge plan of care. CM will continue to follow.
--- NOTE | 2023-02-26 14:19 | PHA.REVIEW2 ---
Pharmacy Admission Review Admission Clinical Review Admission Pharmacy Review: (Updated 02/25/23 @ 08:07 by Delmar Leon NP) Pancreatitis due to biliary obstruction (Acute) Choledocholithiasis with obstruction (Acute) Hyperlipidemia (Acute) Pacemaker (Acute) No Known Drug Allergies Allergy (Unknown, Unverified 02/24/23 15:47) Other (See Comment) Resuscitation Status Full Code Height 5 ft 5 in Weight 83.461 kg Pharmacy Admission Review Renal Dosing Renal Dosing: BUN 13 mg/dL (7-18) 02/26/23 06:12 Creatinine 1.1 mg/dL (0.70-1.30) 02/26/23 06:12 List of meds needing interventions: crcl ~47, currently no adjustments needed Anticoagulation Anticoagulation: Hgb 11.8 g/dL (13.5-17.5) L 02/26/23 06:12 Hct 34.2 % (40.0-50.0) L 02/26/23 06:12 Plt Count 227 10^3/uL (130-400) 02/26/23 06:12 Creatinine 1.1 mg/dL (0.70-1.30) 02/26/23 06:12 DVT Prophylaxis: Reviewed Medications: Enoxaparin (on hold for procedure (ERCP today), last dose yesterday @1430) Opiate Usage Evaluate Pain Scale/Pains Meds: Reviewed (minimal use of IV morphine 2 mg) Scheduled Bowel Reg ordered if on Opiates?: No Relevant Labs Relevant Labs: Sodium 138 mmol/L (136-145) 02/26/23 06:12 Potassium 3.7 mmol/L (3.5-5.1) 02/26/23 06:12 Chloride 104 mmol/L (98-107) 02/26/23 06:12 Magnesium 2.0 mg/dL (1.8-2.4) 02/25/23 06:05 Electrolytes, C-Reactive P, ESR: Reviewed DM Control DM Control: N/A Cardiac Review Cardiac Review: Troponin I < 50 ng/L (<or=60) 02/24/23 17:15 BP, HR, EF%: Reviewed QTc Review QTc: Reviewed (QTc = 508 02/24/23, caution w/meds known to prolong QT. ondansetron ordered 4 mg q4h prn, has had one dose so far) IV to PO Switch IV Medications: Reviewed (continue) Home Meds Home Med List reviewed: Reviewed Relevent Home Meds Not ordered & why?: only Rx med is simvastatin, currently on hold (NPO, AST/ALT elevated - trending down) Current Meds Current Medication Order Review: Reviewed Pharmacy Antibiotic Review Pharmacy Antibiotic Activity: Reviewed, no change (zosyn 3.375 q6h )
[2023-02-26] MEDS: Polyethylene Glycol 3350 17 GM PACKET PO (17:45)
[2023-02-26 18:06] VITALS: BP 178/78; PULSE 85; RESP 16; TEMP 37; O2SAT 95
[2023-02-27] MEDS: PIPERACILLIN/TAZO 3.375 GM in Normal Saline 50 ML IVPB ×2 (02:25→08:39)
[2023-02-27 03:15] VITALS: BP 146/77; PULSE 61; RESP 18; TEMP 36.1; O2SAT 94
[2023-02-27 06:31] LABS: Abs Immature Grans 0.02 10^3/uL (0.0-0.06); Absolute Basophil Count 0.02 10^3/uL (0.0-0.2); Absolute Lymphocyte Count 1.63 10^3/uL (1.2-3.4); Absolute Monocyte Count 0.71 10^3/uL (0.1-0.8); Absolute Neutrophil Count 5.29 10^3/uL (1.2-6.7); Basophils % 0.3; Eosinophils % 2.5; Immature Grans % 0.3; Lymphocytes % 20.7; MCH 28.6 pg (27.0-33.0); MCHC 33.3 % (32.0-36.0); MCV 86 fL (80-95); MPV 9.8 fL (8.0-11.0); Neutrophils % 67.2; Platelet Count 260 10^3/uL (130-400); RDW-SD 46.9 fL; WBC 7.87 10^3/uL (4.4-10.8)
[2023-02-27 06:56] LABS: ALT 94 U/L (16-63); AST 63 U/L (15-37); Albumin 2.3 g/dL (3.4-5.0); Alkaline Phosphatase 295 U/L (46-116); Anion Gap 6.9 mmol/L (3-11); BUN 14 mg/dL (7-18); Bilirubin, Total 2.1 mg/dL (0.2-1.0); CO2 29.1 mmol/L (21.0-32.0); CREATININE 1.1 mg/dL (0.70-1.30); Calcium 8.8 mg/dL (8.5-10.1); Chloride 105 mmol/L (98-107); Estimated GFR 65.38 (mL/min/1.73m2); Glucose 88 mg/dL (74-106); Lipase 51 U/L (16-77); Potassium 4.4 mmol/L (3.5-5.1); Sodium 141 mmol/L (136-145); Total Protein 6.3 g/dL (6.4-8.2)
[2023-02-27 07:41] VITALS: BP 165/82; PULSE 53; TEMP 36; O2SAT 96
[2023-02-27] MEDS: Normal Saline Flush 10 ML SYR IVP (08:40)
[2023-02-27] MEDS: Normal Saline 500 ML 30 ML IV (08:41)
--- NOTE | 2023-02-27 08:44 | W.PM.PROGNOT ---
Date of Service Date of service: 02/27/23 Time of Service: 08:44 Assessment and Plan Assessment and plan (1) Pancreatitis due to biliary obstruction: Status: Acute Assessment and plan: lipase is nl (2) Choledocholithiasis with obstruction: Status: Acute Assessment and plan: LFT'S AND t. bILI ARE ELEVATED BUT TRENDING DOWN hE HAS TOLERATED A DIET hE IS S/P ercp YESTERDAY Will D/C to home. Follow up with Dr. Cameron on 03/01 to discuss Lap. Hillary (3) Hyperlipidemia: Status: Acute (4) Hypertension: Status: Chronic (5) CHF (congestive heart failure): Status: Chronic Assessment and plan: Echo done and looks good EF 55-60% Mild mitral regurgitation (6) Pacemaker: Status: Acute Subjective Subjective Interval history since last seen: Ramírez is doing well this morning he has no discomfort. He is hungry. He underwent ERCP yesterday down at [facility] and they were able to remove his stone. Labs today show that his bilirubin is coming down. It is 2.1 today. His LFTs are also slowly improving. Clinically he is doing really well. He has had no fevers. Exam Resp Effort & Inspection: normal respiratory effort Auscultation: clear to auscultation bilaterally Cardio Rate: regular rate Rhythm: regular rhythm GI Palpation: soft, no hepatosplenomegaly and nontender Auscultation: normal bowel sounds Objective Last Vital Signs Temp 96.8 F L 02/27/23 07:41 Pulse 53 L 02/27/23 07:41 Resp 18 02/27/23 03:15 BP 165/82 H 02/27/23 07:41 Pulse Ox 96 02/27/23 07:41 Laboratory Results - last 24 hr 02/27/23 02/27/23 06:20 06:20 WBC 7.87 RBC 4.20 L Hgb 12.0 L Hct 36.0 L MCV 86 MCH 28.6 MCHC 33.3 RDW 15.0 H Plt Count 260 MPV 9.8 Immature Gran % 0.3 Neutrophils % 67.2 Lymphocytes % 20.7 Monocytes % 9.0 Eosinophils % 2.5 Basophils % 0.3 Nucleated RBC % 0.0 Absolute Neutrophils 5.29 Absolute Lymphocytes 1.63 Absolute Monocytes 0.71 Absolute Eosinophils 0.20 Absolute Basophils 0.02 Sodium 141 Potassium 4.4 Chloride 105 Carbon Dioxide 29.1 Anion Gap 6.9 BUN 14 Creatinine 1.1 Est GFR (CKD-EPI 2020) 65.38 Glucose 88 Calcium 8.8 Total Bilirubin 2.1 H AST 63 H ALT 94 H Alkaline Phosphatase 295 H Total Protein 6.3 L Albumin 2.3 L Lipase 51 Time Spent with Patient Time Spent with Patient: 25-34 minutes Time was spent: preparing to see the patient(eg.review tests), indepentently interpreting results, counseling the patient and care coordination
--- NOTE | 2023-02-27 10:01 | DSE_ITS ---
Date of service: 02/27/23 Time of Service: 10:16 DS: Diagnosis Discharge Diagnosis (1) Pancreatitis due to biliary obstruction: Status: Acute (2) Choledocholithiasis with obstruction: Status: Acute (3) Hyperlipidemia: Status: Acute (4) Hypertension: Status: Chronic (5) CHF (congestive heart failure): Status: Chronic (6) Pacemaker: Status: Acute Discharge Plan Disposition Patient Disposition: Home Condition: Stable Discharge Details Reason For Visit: Gallstones Pancreatitis Admit Date/Time: 02/24/23 14:20 Admit Provider: Olga Ruiz Attending Provider: Olga Ruiz Primary Care Provider: Ramírez Treadwell [facility] Hospital Course: Mr. Fleming is a pleasant 87-year-old gentleman who was admitted on February 24 with gallstone pancreatitis. He went down to [facility] on February 26 for an ERCP and removal of gallstone. He is doing well today. His liver function and total bilirubin are decreasing. He has no abdominal pain. He has no nausea or vomiting. He has been able to tolerate a diet. He has no pain and has not needed any pain medications. I discussed the plan with Mr. Fleming. We will send him home and have a follow- up with Dr. Cameron in a couple of days for a recheck on labs. At that time they can also discuss doing a elective cholecystectomy in a couple of weeks to allow some of the inflammation to go down. Return precautions have been discussed with him. He should call the office or go to the emergency department if he develops abdominal pain, nausea, vomiting or fevers. He will be sent home on a low-fat diet. As his common bile duct has now been cleared and he has been afebrile I will not send him home on antibiotics. Home Meds and New Rx's Prescriptions: Continued multivitamin [Men's Multi-Vitamin] 1 EACH tablet 1 ea PO DAILY ibuprofen 200 MG capsule 400 mg PO BID Vitamin C 1,000 MG tablet extended release 1,000 mg PO DAILY acetaminophen [Tylenol Extra Strength] 500 MG tablet 500 mg PO BID calcium carbonate [Calcium 500] 500 MG tablet 1,500 mg PO DAILY simvastatin 20 MG tablet 20 mg PO HS aspirin 81 MG tablet,chewable 81 mg PO DAILY Discharge Instructions Instructions: Pancreatitis (DC), Gallstones (DC), Heart Healthy Diet (DC) Additional Instructions: Activity at Home after surgery: 1. As tolerated Diet, Nutrition, & wound healin. Avoid alcohol until after you are recovered from your surgery 2. Make sure to eat plenty of lean protein (meat, fish, eggs, cottage cheese, beans) 3. Eat a variety of fruits and vegetables. Eat plenty of high fiber foods to avoid constipation. 4. Drink plenty of liquids to stay hydrated and avoid constipation Pain Medications: 1. Tylenol 650mg every 6 hours as needed and Ibuprofen 600 mg every 6 hours as needed. You may alternate between the 2 medications every 3 hours 2. If a narcotic has been prescribed take as directed only for breakt hrough pain For Constipation: 1. Take Milk of Magnesia or MiraLax as needed for constipation Please call our office if you develop: 1. Fevers >101.5 2. Nausea or Vomiting 3. Worsening pain If after hours please call the Hospital at and ask to speak to the on-call surgeon Referrals: Jailyn Cameron DO [OSTEOPATHIC DOCTOR] - 03/01/23 9:30 am Activity:: Activity as Tolerated Equipment/Supplies:: No Equipment Needed Diet:: heart Healthy Discharge Orders Discharge Orders: Discharge Order (Routine); Ordered 02/27/23 Ordered By: Olga Ruiz DS: Summary Time Spent with Patient providing and/or coordinating discharge services: Greater than 30 minutes Status at Discharge Functional status at discharge: independent ambulation Overall status at discharge: patient is back to baseline Mental Status: mental status grossly normal Speech and Movement: speech and movement normal Mood: congruent mood Affect: normal affect Exam Psych Mental Status: mental status grossly normal Speech and Movement: speech and movement normal Mood: congruent mood Affect: normal affect DS: Data Vitals/I&O Vitals and I&O: Vital Signs Temperature 96.8 F L 02/27/23 07:41 Temperature Source Tympanic 02/27/23 07:41 Pulse 53 L 02/27/23 07:41 Pulse Rhythm Regular 02/27/23 08:15 Pulse 65 02/24/23 15:15 Respiratory Rate 18 02/27/23 03:15 Respiratory Effort Normal 02/27/23 08:15 Respiratory Depth Normal 02/27/23 08:15 Respiratory Pattern Normal 02/27/23 08:15 Blood Pressure 165/82 H 02/27/23 07:41 Blood Pressure Mean 63 02/24/23 15:15 Blood Pressure Position Sitting 02/24/23 10:42 Pulse Oximetry 96 02/27/23 07:41 Oxygen Delivery Method Room Air 02/27/23 03:15 Oxygen Flow Rate 0 02/27/23 03:15 Pain Level 0 02/27/23 03:15 Comment pt was out of [facility] 02/26/23 15:13 Intake & Output 02/26/23 02/26/23 02/27/23 11:59 23:59 11:59 Intake Total 1274.667 / 2274.667 1000 / 2274.667 1108.667 / 1108.667 Output Total 700 / 700 Balance 574.667 / 8827.333 8560 / 1161.866 4116.667 / 1108.667 Intake: IV 1274.667 / 2274.667 1000 / 2274.667 1108.667 / 1108.667 Output: Urine 700 / 700 Other: Urine Color Yellow Urine Appearance Clear Clear Urine Odor Normal Stool Size Small Stool Characteristics Soft Voiding Methods Toilet Toilet Data Completed and Pending Labs on day of discharge: Labs from last 24 hours 02/27/23 02/27/23 06:20 06:20 WBC 7.87 RBC 4.20 L Hgb 12.0 L Hct 36.0 L MCV 86 MCH 28.6 MCHC 33.3 RDW 15.0 H Plt Count 260 MPV 9.8 Immature Gran % 0.3 Neutrophils % 67.2 Lymphocytes % 20.7 Monocytes % 9.0 Eosinophils % 2.5 Basophils % 0.3 Nucleated RBC % 0.0 Absolute Neutrophils 5.29 Absolute Lymphocytes 1.63 Absolute Monocytes 0.71 Absolute Eosinophils 0.20 Absolute Basophils 0.02 Sodium 141 Potassium 4.4 Chloride 105 Carbon Dioxide 29.1 Anion Gap 6.9 BUN 14 Creatinine 1.1 Est GFR (CKD-EPI 2020) 65.38 Glucose 88 Calcium 8.8 Total Bilirubin 2.1 H AST 63 H ALT 94 H Alkaline Phosphatase 295 H Total Protein 6.3 L Albumin 2.3 L Lipase 51 PFSH All Active Problems Pancreatitis due to biliary obstruction (Acute) Choledocholithiasis with obstruction (Acute) Hyperlipidemia (Acute) Hypertension (Chronic) CHF (congestive heart failure) (Chronic) Pacemaker (Acute) Social History Smoking/Tobacco Use Status: Former Tobacco Use Smoking risk assessment performed?: Yes Alcohol Intake: current Alcohol Intake frequency: holidays/special occasions only Alcohol type: other Drug use: Never Substance use type: does not use Housing: house Time Spent with Patient Time Spent with Patient: <45 minutes Time was spent: referring, communicating with other health rn primary care, indepentently interpreting results, counseling the patient and care coordination
--- NOTE | 2023-02-27 10:56 | PDOC.CMDIS ---
Date of service: 02/27/23 Time of Service: 10:56 LACE Index Scoring Tool Questions: Length of Stay (in days): 3 Was the patient admitted via the E.D.?: Yes Comorbidities: Congestive Heart Failure E.D. Visits: 1 Answers: Total Score: 9 Risk of Readmission: Low Risk Care Management Discharge Plan Reason for Hospitalization: Gallstone pancreatitis, choledocholithiasis Discharge Plan: Ramírez is discharged home via private vehicle with family. He will follow up with community providers and his discharge plan of care as instructed. Follow up with Surgical Office on 03/01/23, as scheduled. No new services are ordered. Patient/Family Education Needs: Review discharge instructions, limitations and plan to follow up with outpatient providers. Discuss ask me three.
== END 2023-02-27 10:54 | disposition home or self-care (01) | DRG 439 ==
LOC: ER 14:37 → MS 16:05
PROVIDERS: Admitting Provider Surgery; Emergency Provider Nurse Practitioner Family; PCP Neuromusculoskeletal Medicine & OMM; Visit Provider Surgery
DX: K85.10 Biliary acute pancreatitis without necrosis or infection (principal); K80.51 Calculus of bile duct without cholangitis or cholecystitis with obstruction; E78.5 Hyperlipidemia, unspecified; I11.0 Hypertensive heart disease with heart failure; I50.9 Heart failure, unspecified; Z95.0 Presence of cardiac pacemaker; R00.1 Bradycardia, unspecified; Z87.891 Personal history of nicotine dependence; I34.0 Nonrheumatic mitral (valve) insufficiency
CPT/HCPCS: 36415; 80053; 83690; 93005; 93306; 96374; 96375; 96376; 99223; 99231; 99232; 99239; 99285; J1650; 43264; 74177; 81003; 81015; 83735; 84484; 85025; 93010; 99284; A0420; A0425; A0428; J0131; J2270; J2405; J2543; J3490

== ENCOUNTER 2023-03-01 05:30 | Outpatient (CLI) | payer MEDICARE, SELFPAY ==
[2023-03-01 09:15] LABS: ALT 79 U/L (16-63); AST 64 U/L (15-37); Albumin 2.6 g/dL (3.4-5.0); Alkaline Phosphatase 282 U/L (46-116); Anion Gap 10.3 mmol/L (3-11); BUN 22 mg/dL (7-18); Bilirubin, Total 1.4 mg/dL (0.2-1.0); C-Reactive Protein 3.64 mg/dL (0.0-0.3); CO2 25.7 mmol/L (21.0-32.0); CREATININE 1.1 mg/dL (0.70-1.30); Calcium 8.5 mg/dL (8.5-10.1); Chloride 108 mmol/L (98-107); Estimated GFR 65.38 (mL/min/1.73m2); Glucose 120 mg/dL (74-106); Sodium 144 mmol/L (136-145); Total Protein 6.8 g/dL (6.4-8.2)
== END 2023-03-01 05:31 | disposition home or self-care (01) ==
LOC: LBO 05:30
PROVIDERS: PCP Neuromusculoskeletal Medicine & OMM; Visit Provider Surgery
DX: E78.5 Hyperlipidemia, unspecified (principal); I10 Essential (primary) hypertension; I50.9 Heart failure, unspecified; K83.1 Obstruction of bile duct; K85.90 Acute pancreatitis without necrosis or infection, unspecified; Z95.0 Presence of cardiac pacemaker
CPT/HCPCS: 36415; 80053; 99213; 86140

== ENCOUNTER 2023-03-20 07:59 | Day surgery (SDC) | payer MEDICARE, SELFPAY ==
--- NOTE | 2023-03-19 20:13 | PDOC.DSDIS_ITS ---
Date of service: 03/20/23 Time of Service: 11:17 Discharge Plan Disposition Patient Disposition: Home Discharge Details Reason For Visit: gallbladder removal Attending Provider: Jailyn Cameron Primary Care Provider: Ramírez Treadwell Home Meds and New Rx's Prescriptions: New tramadol 50 mg tablet 50 mg PO Q4H PRN (Reason: pain (scale score 7-10)) Qty: 14 0RF Rx Instructions: will cause constipation Continued multivitamin [Men's Multi-Vitamin] 1 EACH tablet 1 ea PO DAILY ibuprofen 200 MG capsule 400 mg PO BID Vitamin C 1,000 MG tablet extended release 1,000 mg PO DAILY acetaminophen [Tylenol Extra Strength] 500 MG tablet 500 mg PO BID calcium carbonate [Calcium 500] 500 MG tablet 1,500 mg PO DAILY simvastatin 20 MG tablet 20 mg PO HS Held aspirin 81 MG tablet,chewable 81 mg PO DAILY Hold Instructions: Resume on 03/21/23. Discharge Instructions Additional Instructions: Care after Gallbladder Surgery -Pain control: ?For the first 72 hours after surgery, take you pain meds continuously and not just when you have pain.?? Tylenol 1000mg by mouth every 8 hours. ??Use the tramadol for breakthrough pain- pain that is greater than a 7. ?- Use ICE! Ice really helps to keep the swelling down, and swelling causes pain. ??Twenty minutes on, and then off, continuously for the first 72hours.? After the first 72hrs, you can just use the Tylenol, and ice, ?when you have pain.?? If you are taking narcotic pain medication, follow the instructions on the label and do not drive. Pain medications can make you very constipated. Make sure you are moving your bowels daily. If not, take Miralax, - Anesthesia makes you very constipated.? Take a dose of milk of magnesia the morning after surgery. ? Use an ice bag for the first 72 hours. This helps to decrease swelling, which causes pain. It is normal to be more sore/painful and swollen towards the end of the day and first thing in the morning. ? Gallbladder surgery can make you very nauseated; use Zofran for nausea, for the first 24 hours. The nausea generally stops after 24 hours. ? Use Miralax or prune juice to prevent constipation (this is a particular side effect of pain medication and anesthesia). Do not allow yourself to become constipated. ? Avoid fatty or greasy foods; introduce these slowly, with care, after about 1 month. High-fat foods include: ? Foods that are fried, like Malagasy fries and potato chips ? High-fat meats, such as sadler, bologna, sausage, ground beef, and ribs, pork products ? High-fat dairy products, such as cheese, ice cream, cream, whole milk, and sour cream ? Pizza ? Foods made with lard or butter ? Creamy soups or sauces ? Meat gravies ? Chocolate ? Oils, such as palm and coconut oil ? Skin of chicken or turkey ? Nuts and nut butters ? Avocadoes ? Start out eating very small, bland amounts of food. Do not take pain pills on an empty stomach. - You will notice purple discoloration around the incisions.? This is the ?skin glue?.? This will wear off on its own.? It is OK to shower after 24hrs.? You do not need to cover the incisions. -You should walk frequently, gradually, increasing the distance. You may climb stairs, just go slowly. ? Do not go swimming or sit in a hot tub for two weeks. ? There are no stitches to remove. ? Do not drive your car x72hrs and then only if you have no pain and can move freely. Do not drive if you are taking pain narcotic pain medications. ? You may resume sexual activity whenever pain and soreness subside, usually in 2 weeks. ? Do no lift anything over 5 lbs. for two weeks. ? You may return to work in one week, or when you feel able, provided you do not have to do any heavy lifting or prolonged standing. ? You should return to Dr. Cameron?s office for a post-op appointment about two weeks after surgery. A follow-up should have been scheduled for you already.? If there is not, please call the Surgical Clinic at: [phone] to schedule an appointment. My Medications for pain and nausea are: Tylenol ?and ultram- for severe pain ?and Zofran-nausea When to Call the Office: ? If the incision becomes red or swollen, or there is more than a little cristofer inage from it. ? If you develop a temperature higher than 100.5 F. ? If your eyes turn yellow ? Vomiting and can?t keep fluids down Activity:: see above Remove Dressings/Wound Care:: 24 hours Shower/Bathe:: 24 hours Diet:: see above Discharge Orders Discharge Orders: Discharge Order (Routine); Ordered 03/19/23 Ordered By: Jailyn Cameron
[2023-03-20] VITALS (8 sets, daily range): BP systolic 141–189; BP diastolic 55–95; PULSE 60–83; RESP 15–21; TEMP 36.4–36.6; O2SAT 94–99; BMI 32.2
[2023-03-20] MEDS: Acetaminophen 500 MG TAB 1000 MG PO (08:26)
[2023-03-20] MEDS: Gabapentin 300 MG CAP 600 MG PO (08:26)
[2023-03-20] MEDS: Lactated Ringers 1,000 ML 80 ML IV (08:34)
[2023-03-20] MEDS: Indocyanine green 25 MG VIAL 5 MG IVP (08:37)
--- NOTE | 2023-03-20 09:43 | ANES.PREOP_ITS ---
General Info Date of Service Date Performed: 03/20/23 Height: 5 ft 3 in Weight: 82.6 kg Body Mass Index (BMI): 32.2 Surgical Procedure: Operation Date: 03/20/23 09:55 Proposed Procedure Side Surgeon p Cholecystectomy Laparoscopic possible Open Jailyn Cameron, Meds Allergies and Home Medications Allergies Allergy/AdvReac Type Severity Reaction Status Date / Time No Known Drug Allergies Allergy Unknown Other (See Verified 03/20/23 08:23 Comment) Home Medication Medication Instructions Recorded acetaminophen 500 mg tablet 500 mg PO BID 06/16/15 (Tylenol Extra Strength) ascorbic acid (vitamin C) 1,000 mg 1,000 mg PO DAILY 06/16/15 tablet,extended release (Vitamin C ER) aspirin 81 mg chewable tablet 81 mg PO DAILY 06/16/15 calcium carbonate 500 mg calcium 1,500 mg PO DAILY 06/16/15 (1,250 mg) tablet (Calcium 500) ibuprofen 200 mg capsule 400 mg PO BID 06/16/15 multivitamin (Men's Multi-Vitamin 1 ea PO DAILY 06/16/15 tablet) simvastatin 20 mg tablet 20 mg PO HS 06/16/15 Current Visit Medications: Current Medications Generic Name Dose Route Start Last Admin Trade Name Freq PRN Reason Stop Dose Admin Acetaminophen 1,000 mg 03/20/23 06:00 03/20/23 08:26 Acetaminophen 500 Mg Tab PO 03/20/23 23:59 1,000 mg PREOP RUFINO Administration Gabapentin 600 mg 03/20/23 06:00 03/20/23 08:26 Gabapentin 300 Mg Cap PO 03/20/23 23:59 600 mg PREOP RUFINO Administration Ringer's Solution 1,000 mls @ 80 mls/hr 03/20/23 06:00 03/20/23 08:34 IV 03/20/23 23:59 80 mls/hr INFUSION RUFINO Administration Cefazolin Sodium/Dextrose 2 gm in 50 mls @ 100 mls/hr 03/20/23 06:00 Ancef Duplex IVPB 03/20/23 23:59 PREOP RUFINO Ondansetron HCl 4 mg/ Sodium 52 mls @ 200 mls/hr 03/20/23 08:10 Chloride IVPB 04/19/23 08:09 Q6H PRN PRN IV Miscellaneous Supplies 1 each 03/20/23 06:00 Iv Access IV 03/20/23 23:59 DIRECTED RUFION Indocyanine Green 5 mg 03/20/23 07:00 03/20/23 08:37 Indocyanine Green 25 Mg Vial IVP 04/19/23 06:59 5 mg DIRECTED RUFINO Administration Morphine Sulfate 2 mg 03/20/23 08:10 Morphine 4 Mg/Ml Syr IVP 04/19/23 08:09 Q1H PRN PRN Sodium Chloride 0 ml 03/20/23 06:00 Normal Saline Flush 10 Ml Syr IV 03/20/23 23:59 PRN PRN Sodium Chloride 0 ml 03/20/23 06:00 Normal Saline 10 Ml Vial IJ 03/20/23 23:59 DIRECTED PRN Sterile Water 0 ml 03/20/23 06:00 Water,Injection,Sterile 10 Ml Vial IJ 03/20/23 23:59 DIRECTED PRN Tramadol HCl 50 mg 03/20/23 08:10 Tramadol 50 Mg Tab PO 04/19/23 08:09 Q6H PRN PRN Pain PFSH Active Problems Active Problems: Problem Status Onset Code Pacemaker Z95.0 CHF (congestive heart failure) I50.9 Hypertension I10 Hyperlipidemia E78.5 Surgical History Surgical History (Updated 03/20/23 @ 08:23 by Sofía Brennan RN) Hx of cataract extraction Tobacco Smoking/Tobacco Use Status: Former Tobacco Use Alcohol Alcohol Intake: current Alcohol intake frequency: holidays/special occasions only Alcohol type: other Substance Use Substance use: Never Substance use type: does not use Vital Signs and Lab Results Vital Signs Most Recent Vital Signs in EMR: Most Recent Vital Signs Temp Pulse Resp BP Pulse Ox 36.4 C L 83 17 141/95 H 97 03/20/23 08:11 03/20/23 08:11 03/20/23 08:11 03/20/23 08:11 03/20/23 08:11 Lab Results Blood Type / Crossmatch: No Data to Display Complete Blood Count: White Blood Count 7.87 10^3/uL (4.4-10.8) 02/27/23 06:20 Red Blood Count 4.20 10^6/uL (4.36-5.78) L 02/27/23 06:20 Hemoglobin 12.0 g/dL (13.5-17.5) L 02/27/23 06:20 Hematocrit 36.0 % (40.0-50.0) L 02/27/23 06:20 Platelet Count 260 10^3/uL (130-400) 02/27/23 06:20 Complete Metabolic Panel: Sodium 144 mmol/L (136-145) 03/01/23 08:51 Potassium 4.0 mmol/L (3.5-5.1) 03/01/23 08:51 Chloride 108 mmol/L (98-107) H 03/01/23 08:51 Carbon Dioxide 25.7 mmol/L (21.0-32.0) 03/01/23 08:51 BUN 22 mg/dL (7-18) H 03/01/23 08:51 Creatinine 1.1 mg/dL (0.70-1.30) 03/01/23 08:51 Est GFR (CKD-EPI 2020) 65.38 (mL/min/1.73m2) 03/01/23 08:51 Magnesium 2.0 mg/dL (1.8-2.4) 02/25/23 06:05 Calcium 8.5 mg/dL (8.5-10.1) 03/01/23 08:51 Albumin 2.6 g/dL (3.4-5.0) L 03/01/23 08:51 Glucose 120 mg/dL (74-106) H 03/01/23 08:51 C-Reactive Protein 3.64 mg/dL (0.0-0.3) H 03/01/23 08:51 Liver Function Panel: Alanine Aminotransferase (ALT/SGPT) 79 U/L (16-63) H 03/01/23 0 8:51 Aspartate Amino Transf (AST/SGOT) 64 U/L (15-37) H 03/01/23 08: 51 Coagulation Panel: No Data to Display Cardiac Panel: Troponin I < 50 ng/L (<or=60) 02/24/23 Arterial Blood Gas: No Data to Display Venous Blood Gas: No Data to Display Pancreas Panel: Lipase 51 U/L (16-77) 02/27/23 06:20 Thyroid Panel: No Data to Display Infectious Disease: No Data to Display Blood Cultures: No Data to Display Toxicology Panel: No Data to Display Imaging and Studies Imaging and Studies Study information below may be from another EMR and interpreted by another provider. Please see original notes in EMR for more complete details. EKG Summary: 02/24/23 Conclusion Afib/flutter and ventricular-paced rhythm...V-paced rhythm, A-rate>240 Echocardiogram Summary: Conclusion Normal left ventricular wall thickness and chamber size. Ejection fraction is 55 to 60%. Wall motion is normal. Normal right ventricular size and function Both atria are normal in size Device lead noted in the right heart Aortic valve is mildly sclerotic and trileaflet without stenosis or regurgitation Mildly thickened mitral leaflets, mitral annular calcification, mild mitral regurgitation Normal tricuspid valve with mild regurgitation. 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 02/26/23 Anesthesia Assessment and Plan Anesthesia History Personal History: No History of Anesthesia Complications Family History: No Family History of Anesthesia Complications Exercise Tolerance Exercise Tolerance: Metabolic Equivalents<4 Pertinent Negatives Pertinent Negatives: No Symptoms of GERD, No Major Cardiovascular Symptoms or Complaints and No Major Pulmonary Symptoms or Complaints Cardiac & Pulmonary Exam Cardiac Exam: Normal S1/S2 Heart Sounds Pulmonary Exam: Clear Bilateral Breath Sounds Implantable Cardiac Device Does patient have a Pacemaker or an ICD?: Yes Device [employer]:: [employer] dual lead model 5076-45 Reason for Placement:: Afib Date of Last Device Interrogation:: 03/07/23 Airway Exam Known Difficult Airway: No Mallampati Class: 2 Mouth Opening: Normal (> 3cm) Thyromental Distance: Greater than 3 cm Neck Range of Motion: Full ROM Neck Circumference: Normal Teeth Condition: Removable Dentures/Plates Upper and Edentulous ASA Classification ASA Score: ASA 3 Emergency Case?: No NPO Status NPO Status: NPO Clears >2 hours, Solids >8 hours Anesthesia Plan Resuscitation Status: Full Code Anesthesia Technique: General Anesthesia Airway Planned: Endotracheal Tube Monitors Used: Standard Monitors
[2023-03-20] MEDS: ceFAZolin 2 GM/50 ML BAG IVPB (10:23)
[2023-03-20] MEDS: Bupivacaine 0.25% Pres-Free 30 ML VIAL (11:00)
--- NOTE | 2023-03-20 11:03 | GB_PTH ---
PATIENT: Ramírez Fleming LOC: [facility] U#:[id number] AGE/SX: 87/M ROOM: RE03/20/[address]: Jailyn Cameron : 1935 BED: DIS: 03/20/2023 SPEC #: [id number] RECD: 03/20/23 12:59 STATUS: PAMELA REQ #: [id number] IDA: 03/20/23 11:[address]: Jailyn Cameron DEPT: Surgical Specimen RECD BY: Maria Del Carmen Estrada ENTERED: 03/20/23 12:59 SP TYPE: GB OTHR DR: Ramírez Treadwell Tissues: 1 - GALLBLADDER Procedures: GROSS AND MICRO LEVEL 3 Comments: [id number]
--- NOTE | 2023-03-20 12:26 | W.ANESPOSTOP ---
Postoperative Evaluation Date, Time and Location Date Performed: 03/20/23 Time Performed: 12:12 Patient Location: Day Surgery Unit Vital Signs Most Recent Imported Vital Signs: Most Recent Vital Signs Temp Pulse Resp BP Pulse Ox 36.4 C L 60 17 149/62 H 96 03/20/23 11:59 03/20/23 11:59 03/20/23 11:59 03/20/23 11:59 03/20/23 11:59 Pain Score Most Recent Pain Score: Most Recent Pain Score Pain Level 2 03/20/23 11:59 Assessment Mental Status: Awake (Alert & Oriented to Patient Baseline) Airway and Respiratory Function: Patent airway with normal (patient baseline) respiratory exam Cardiovascular Function: Hemodynamically Stable Hydration Status: Adequately Hydrated Nausea & Vomiting: No Nausea or Vomiting Pain: Pain is tolerable per patient Peripheral Nerve Block: Patient did not receive a nerve block
--- NOTE | 2023-03-22 09:38 | ROE_ITS ---
Date of service: 03/20/23 Time of Service: 11:00 Operative Note Operative Note DATE OF PROCEDURE: 03/20/23 PRE-OP DIAGNOSIS: gallstones and CBD duct steon. s/p ercp POST-OP DIAGNOSIS: same PROCEDURE: Laparoscopic cholecystectomy SURGEON: Jailyn Joshi BLOW DOWN HELPER: Latha Jackson ANESTHESIA TYPE: Local By Surgeon and General LMA/ETT Refer to Anesthesia Record ESTIMATED BLOOD LOSS: 10 PATHOLOGY: other COMPLICATIONS: None Patient was transported to: PACU Patient's condition: stable Procedure Description: and is here today for laparoscopic cholecystectomy. Informed consent was obtained, explaining risks and benefits of the procedure including but not limited to bleeding, infection, pneumonia, blood clots, possible damage to bowel, bladder, blood vessels, bile ducts, possible open procedure, complications of general anesthesia and other unforetold complications. PROCEDURE: The patient agrees and is brought to the operative room suite and placed in supine position. Anesthesia was administered per the Department of Anesthesia. The patient did receive IV antibiotics. NG tube and Felix catheter are placed. The patient was prepped and draped in the usual sterile fashion using DuraPrep scrub solution. Pause for the cause was done. 20 mL of 1% buffered lidocaine was used for local anesthetization. A stab incision was made in the umbilicus and the Verres inserted. Drop test was positive and insufflation was begun. When 15 mm of pressure was noted on the monitor, the Veress was removed and #5 port inse rted. The camera was inserted through the port and shows no damage to underlying structures. A 10 mm port was then placed in the epigastric position under direct visualization following creation of local field blocks as well as two 5 mm ports in the right upper quadrant. The camera was moved to one of the secondary ports so we could view the umbilical trocar site, and there is are no hernias or ad hesions. The gallbladder fundus was grasped and retracted towards the right shoulder. He has a few omental adhesions up to the gallbladder. These were taken down with combination of sharp dissection and electrocautery. Infundibulum was grasped and retracted laterally. The skiving greenlight technology and intravenous ICG is used to help with cystic duct visualization. The hepat-duodenal ligament is entered. The cystic duct and artery are dissected out and the most inferior portion of the gallbladder plate is removed from the liver and the critical view of safety was obtained after clearing away all fatty material. Endo Clips were placed across the duct and artery and these structures are divided. The remainder of the gallbladder was excised from the liver bed. The gallbladder was placed in a bag and brought out. Examination of the gallbladder shows indeed the cystic duct and artery to have been divided. The remainder of the abdomen was copiously irrigated with a liter of saline. All saline is removed. There is no bleeding or bile leakage from the liver bed or the clips sites. An EndoClose needle was used to close the 10 mm port site with an 0 Vicryl. All ports and instruments are removed. SPonge and needle counts are correct. Pneumoperitoneum is evacuated and the port sites are monitored to make sure there is no bleeding at the time of desufflation. ??Port sites are irriga dennis and the skin is closed with 4-0 Monocryl in a running subcuticular fashion. Skin glue sterile dressings are applied. The patient tolerated the procedure well without complications, transferred to the recovery room in stable condition. JAILYN JOSHI, DO
== END 2023-03-20 13:00 | disposition home or self-care (01) ==
PROVIDERS: PCP Neuromusculoskeletal Medicine & OMM; Visit Provider Surgery
PROC: 0FT44ZZ Resection of Gallbladder, Percutaneous Endoscopic Approach (ICD-10-PCS; CPT 47562; principal; 2023-03-20 09:45)
DX: K80.20 Calculus of gallbladder without cholecystitis without obstruction (principal); I11.0 Hypertensive heart disease with heart failure; I50.9 Heart failure, unspecified; E78.5 Hyperlipidemia, unspecified; Z95.0 Presence of cardiac pacemaker
CPT/HCPCS: 47562; 88304; J0690; J1100; J2371; J2405

== ENCOUNTER → 2023-04-05 10:15 | Outpatient (BNVA) | payer MEDICARE, SELFPAY | PROVIDERS: PCP Neuromusculoskeletal Medicine & OMM; Referring Provider Neuromusculoskeletal Medicine & OMM; Visit Provider Surgery | DX: Z48.815 Encounter for surgical aftercare following surgery on the digestive system (principal); Z90.49 Acquired absence of other specified parts of digestive tract ==

== ENCOUNTER → 2023-05-10 02:30 | Outpatient (CLI) | payer MEDICARE, SELFPAY ==
--- NOTE | 2023-05-10 07:15 | DI.CT_ITS ---
Exam(s) CT LUMBAR SPINE SI JOINTS WO EXAM: CT LUMBAR SPINE SI JOINTS WO CLINICAL HISTORY: pain/immobility/sciatica,CHRONIC LOW BACK PAIN, M54.41. TECHNIQUE: Imaging Protocol: Axial computed tomography images with coronal and sagittal reformatted images were created and reviewed COMPARISON: CT CT PELVIC WO from 05/10/2023 FINDINGS: Bones: The last intervertebral disc space is designated the L5/S1 level for the numbering purpose of this examination. The vertebral body heights are maintained. Endplate osteophytes are noted throughout. No significant scoliosis. No fracture is seen. T12-L1: No disc herniations or bulges are present. L1-2: No disc herniations or bulges are present. L2-3: Moderate loss of disc height. Broad base mild disc bulging. Ligamentous hypertrophy and face t degenerative changes cause mild central canal stenosis. No neural foraminal narrowing. L3-4: Moderate to severe loss of disc height, eccentric toward the right. Mild concentric disc bulg ing. Mild ligamentous hypertrophy causing mild central canal stenosis. L4-5: Mild loss of disc height. Concentric disc bulging. Facet degenerative changes. Slight degen erate spondylolisthesis. Moderate central canal stenosis. L5-S1: Normal disc height. Mild disc bulging eccentric toward the right. No significant neural for aminal narrowing or central canal stenosis. Soft Tissues: The paraspinal soft tissues are unremarkable. Calcification in the aorta without evide nce of aneurysm. Sigmoid diverticulosis. Status post cholecystectomy. IMPRESSION: multilevel degenerative disc changes and facet degenerative changes. The findings are worst at L4-5 where there is moderate central canal stenosis. RADIATION DOSE DELIVERED: Total DLP DATA REPOSITORY: All CT scans at this facility are submitted to the National Radiology Data Registry (NRDR) Dose Index Registry (DIR) with the [employer] ([employer]). RADIATION OPTIMIZATION: All CT scans at this facility use at least one of these dose optimization te chniques: automated exposure control; mA and/or kV adjustment per patient size (includes targeted exa ms where dose is matched to clinical indication); or iterative reconstruction.
--- NOTE | 2023-05-10 07:15 | DI.CT_ITS ---
Exam(s) CT PELVIC WO EXAM: CT PELVIC WO CLINICAL HISTORY: pain in hip/diffculty walking. TECHNIQUE: Imaging Protocol: Axial computed tomography images with coronal and sagittal reformatted images were created and reviewed. CONTRAST MATERIAL: Oral: no COMPARISON: CT CT ABDOMEN PELVIS W from 02/24/[address] LUMBAR SPINE SI JOINTS WO from 05/10/2023 FINDINGS: Bones: No fracture. End-stage degenerative changes of the right hip. There is obliteration of the h ip joint space, prominent periarticular spurring in innumerable subchondral cyst in the acetabulum an d humeral head. There is some remodeling of the acetabulum and femoral head. The left hip shows mild joint space narrowing, mild periarticular spurring and a few small subchondra l cysts. There is bony bridging across the anterior SI joints, right greater than left. There is mild atrophy of the right gluteal muscles compared to the left. Bladder: Nearly empty. Bowel: Sigmoid diverticulosis. Appendix normal. Peritoneal cavity: No ascites, collection or mesenteric inflammatory response. Reproductive: Prostate mildly enlarged. Soft tissues: Small fatty containing left inguinal hernia.. IMPRESSION: End-stage degenerative changes of the right hip. Mild degenerative changes of the left hip. RADIATION DOSE DELIVERED: Total DLP DATA REPOSITORY: All CT scans at this facility are submitted to the National Radiology Data Registry (NRDR) Dose Index Registry (DIR) with the [employer] ([employer]). RADIATION OPTIMIZATION: All CT scans at this facility use at least one of these dose optimization te chniques: automated exposure control; mA and/or kV adjustment per patient size (includes targeted exa ms where dose is matched to clinical indication); or iterative reconstruction.
== END ==
PROVIDERS: PCP Neuromusculoskeletal Medicine & OMM; Visit Provider Surgery
DX: E78.5 Hyperlipidemia, unspecified (principal); G89.29 Other chronic pain; I10 Essential (primary) hypertension; I50.9 Heart failure, unspecified; M47.816 Spondylosis without myelopathy or radiculopathy, lumbar region; M54.41 Lumbago with sciatica, right side; Z95.0 Presence of cardiac pacemaker
CPT/HCPCS: 72131; 72192

== ENCOUNTER → 2023-05-31 09:42 | Outpatient (BNVA) | payer MEDICARE, SELFPAY | PROVIDERS: PCP Neuromusculoskeletal Medicine & OMM; Referring Provider Neuromusculoskeletal Medicine & OMM | DX: M16.11 Unilateral primary osteoarthritis, right hip (principal); M54.41 Lumbago with sciatica, right side; G89.29 Other chronic pain | CPT/HCPCS: 99215 ==

== ENCOUNTER → 2023-06-14 13:12 | Outpatient (BNVA) | payer MEDICARE, SELFPAY | PROVIDERS: PCP Neuromusculoskeletal Medicine & OMM; Referring Provider Neuromusculoskeletal Medicine & OMM; Visit Provider Student in an Organized Health Care Education/Training Program | DX: M16.11 Unilateral primary osteoarthritis, right hip (principal) | CPT/HCPCS: 20611 ==

== ENCOUNTER 2023-07-05 03:03 | Outpatient (CLI) | payer MEDICARE, SELFPAY ==
[2023-07-05 12:00] LABS: HCT 41.9 % (40.0-50.0); HGB 13.9 g/dL (13.5-17.5); MCH 29.4 pg (27.0-33.0); MCHC 33.2 % (32.0-36.0); MCV 89 fL (80-95); MPV 9.7 fL (8.0-11.0); Platelet Count 177 10^3/uL (130-400); RBC 4.73 10^6/uL (4.36-5.78); RDW 13.9 % (11.8-14.1); RDW-SD 45.1 fL; WBC 6.62 10^3/uL (4.4-10.8)
[2023-07-05 12:24] LABS: Anion Gap 8.1 mmol/L (3-11); BUN 24 mg/dL (7-18); CO2 27.9 mmol/L (21.0-32.0); CREATININE 1.2 mg/dL (0.70-1.30); Calcium 9.5 mg/dL (8.5-10.1); Chloride 106 mmol/L (98-107); Estimated GFR 58.53 (mL/min/1.73m2); Glucose 102 mg/dL (74-106); Potassium 4.7 mmol/L (3.5-5.1); Sodium 142 mmol/L (136-145)
== END 2023-07-05 03:04 | disposition home or self-care (01) ==
LOC: LBO 03:04
PROVIDERS: PCP Neuromusculoskeletal Medicine & OMM; Visit Provider Student in an Organized Health Care Education/Training Program
DX: M16.11 Unilateral primary osteoarthritis, right hip (principal); Z01.818 Encounter for other preprocedural examination
CPT/HCPCS: 36415; 80048; 85027; 72170

== ENCOUNTER 2023-07-05 13:52 | Outpatient (CLI) | payer MEDICARE, SELFPAY ==
--- NOTE | 2023-07-05 10:30 | DI.RAD_ITS ---
Exam(s) XR PELVIS AP EXAM: XR PELVIS AP CLINICAL HISTORY: PRE OP R CHI. TECHNIQUE: 2D digital imaging was performed.One images were obtained. COMPARISON: CT CT PELVIC WO from 05/10/2023 FINDINGS: Single AP view of the pelvis was performed with a marker ball in place. There are marked degenerativ e changes again seen at the right hip with loss of the joint space. There is loss of volume of the r ight femoral head. Subchondral sclerosis and cysts are seen in the right acetabulum and the articula r surface of the femoral head. Mild degenerative changes are seen in the left hip. Atherosclerosis is present. IMPRESSION: Advanced arthrosis of the right hip. DATA REPOSITORY: RADIATION DOSE DELIVERED:
== END 2023-07-05 13:53 | disposition home or self-care (01) ==
LOC: DIORS 13:52
PROVIDERS: PCP Neuromusculoskeletal Medicine & OMM; Visit Provider Physician Assistant
DX: M16.11 Unilateral primary osteoarthritis, right hip (principal); Z01.818 Encounter for other preprocedural examination
CPT/HCPCS: 72170

== ENCOUNTER 2023-07-12 08:05 | Day surgery (SDC) | payer MEDICARE, SELFPAY ==
[2023-07-12] VITALS (10 sets, daily range): BP systolic 120–197; BP diastolic 53–76; PULSE 57–87; RESP 14–18; TEMP 36.3–36.8; O2SAT 96–100; BMI 32.8
--- NOTE | 2023-07-12 06:23 | ANES.PREOP_ITS ---
General Info Date of Service Date Performed: 07/12/23 Height: 5 ft 3 in Weight: 83.915 kg Body Mass Index (BMI): 32.8 Surgical Procedure: Operation Date: 07/12/23 11:05 Proposed Procedure Side Surgeon p Hip Total Hip Anterior, ACTIS Right Richard Griffin MD Meds Allergies and Home Medications Allergies Allergy/AdvReac Type Severity Reaction Status Date / Time No Known Drug Allergies Allergy Unknown Other (See Verified 07/12/23 09:01 Comment) Home Medication Medication Instructions Recorded acetaminophen 500 mg tablet 500 mg PO BID 06/16/15 (Tylenol Extra Strength) ascorbic acid (vitamin C) 1,000 mg 1,000 mg PO DAILY 06/16/15 tablet,extended release (Vitamin C ER) aspirin 81 mg chewable tablet 81 mg PO DAILY 06/16/15 calcium carbonate 500 mg calcium 1,500 mg PO DAILY 06/16/15 (1,250 mg) tablet (Calcium 500) ibuprofen 200 mg capsule 400 mg PO BID 06/16/15 multivitamin (Men's Multi-Vitamin 1 ea PO DAILY 06/16/15 tablet) simvastatin 20 mg tablet 20 mg PO HS 06/16/15 Current Visit Medications: Current Medications Generic Name Dose Route Start Last Admin Trade Name Freq PRN Reason Stop Dose Admin Acetaminophen 1,000 mg 07/12/23 06:00 Acetaminophen 500 Mg Tab PO 07/12/23 18:00 PREOP RUFINO Celecoxib 400 mg 07/12/23 06:00 Celecoxib 200 Mg Cap PO 07/12/23 18:00 PREOP RUFINO Tranexamic Acid 1,000 mg/ 60 mls @ 360 mls/hr 07/12/23 06:00 Sodium Chloride IV 07/12/23 18:00 PREOP RUFINO Ringer's Solution 1,000 mls @ 80 mls/hr 07/12/23 06:00 IV 07/15/23 23:59 INFUSION RUFINO Cefazolin Sodium/Dextrose 2 gm in 50 mls @ 100 mls/hr 07/12/23 06:00 Ancef Duplex IVPB 07/12/23 23:59 PREOP RUFINO IV Miscellaneous Supplies 1 each 07/12/23 06:00 Iv Access IV 07/15/23 23:59 DIRECTED RUFINO Sodium Chloride 0 ml 07/12/23 06:00 Normal Saline Flush 10 Ml Syr IV 07/15/23 23:59 PRN PRN Sodium Chloride 0 ml 07/12/23 06:00 Normal Saline 10 Ml Vial IJ 07/15/23 23:59 DIRECTED PRN Sterile Water 0 ml 07/12/23 06:00 Water,Injection,Sterile 10 Ml Vial IJ 07/15/23 23:59 DIRECTED PRN PFSH Active Problems Active Problems: Problem Status Onset Code Atrial fibrillation I48.91 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, 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), 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 CHF (congestive heart failure) I50.9 Hypertension I10 Hyperlipidemia E78.5 Surgical History Surgical History 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 S/P laparoscopic cholecystectomy Hx of cataract extraction Tobacco Smoking/Tobacco Use Status: Former Tobacco Use Alcohol Alcohol Intake: current Alcohol intake frequency: holidays/special occasions only Alcohol type: other Substance Use Substance use: Never Substance use type: does not use Vital Signs and Lab Results Vital Signs Most Recent Vital Signs in EMR: Temp Pulse Resp BP Pulse Ox 36.8 C 87 16 146/76 H 98 07/12/23 09:09 07/12/23 09:09 07/12/23 09:09 07/12/23 09:09 07/12/23 09:09 Lab Results Blood Type / Crossmatch: No Data to Display Complete Blood Count: White Blood Count 6.62 10^3/uL (4.4-10.8) 07/05/23 11:45 Red Blood Count 4.73 10^6/uL (4.36-5.78) 07/05/23 11:45 Hemoglobin 13.9 g/dL (13.5-17.5) 07/05/23 11:45 Hematocrit 41.9 % (40.0-50.0) 07/05/23 11:45 Platelet Count 177 10^3/uL (130-400) 07/05/23 11:45 Complete Metabolic Panel: Sodium 142 mmol/L (136-145) 07/05/23 11:45 Potassium 4.7 mmol/L (3.5-5.1) 07/05/23 11:45 Chloride 106 mmol/L (98-107) 07/05/23 11:45 Carbon Dioxide 27.9 mmol/L (21.0-32.0) 07/05/23 11:45 BUN 24 mg/dL (7-18) H 07/05/23 11:45 Creatinine 1.2 mg/dL (0.70-1.30) 07/05/23 11:45 Est GFR (CKD-EPI 2020) 58.53 (mL/min/1.73m2) 07/05/23 11:45 Calcium 9.5 mg/dL (8.5-10.1) 07/05/23 11:45 Glucose 102 mg/dL (74-106) 07/05/23 11:45 Liver Function Panel: No Data to Display Coagulation Panel: No Data to Display Cardiac Panel: No Data to Display Arterial Blood Gas: No Data to Display Venous Blood Gas: No Data to Display Pancreas Panel: No Data to Display Thyroid Panel: No Data to Display Infectious Disease: No Data to Display Blood Cultures: No Data to Display Toxicology Panel: No Data to Display Imaging and Studies Imaging and Studies Study information below may be from another EMR and interpreted by another provider. Please see original notes in EMR for more complete details. EKG Summary: 02/24/23 Conclusion Afib/flutter and ventricular-paced rhythm...V-paced rhythm, A-rate>240 Echocardiogram Summary: Conclusion Normal left ventricular wall thickness and chamber size. Ejection fraction is 55 to 60%. Wall motion is normal. Normal right ventricular size and function Both atria are normal in size Device lead noted in the right heart Aortic valve is mildly sclerotic and trileaflet without stenosis or regurgitation Mildly thickened mitral leaflets, mitral annular calcification, mild mitral regurgitation Normal tricuspid valve with mild regurgitation. 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 02/26/23 Anesthesia Assessment and Plan Anesthesia History Personal History: No History of Anesthesia Complications Family History: No Family History of Anesthesia Complications Exercise Tolerance Exercise Tolerance: Unknown Cardiac & Pulmonary Exam Cardiac Exam: Normal S1/S2 Heart Sounds Pulmonary Exam: Clear Bilateral Breath Sounds Implantable Cardiac Device Does patient have a Pacemaker or an ICD?: Yes Device [employer] Infrastructure Architect:: [employer] Reason for Placement:: A-fib/CHB Date of Last Device Interrogation:: 04/29/23 Airway Exam Known Difficult Airway: No Mallampati Class: 2 Mouth Opening: Normal (> 3cm) Thyromental Distance: Greater than 3 cm Neck Range of Motion: Full ROM Neck Circumference: Normal Teeth Condition: Removable Dentures/Plates Upper and Edentulous ASA Classification ASA Score: ASA 3 Emergency Case?: No NPO Status NPO Status: NPO Clears >2 hours, Solids >8 hours Anesthesia Plan Resuscitation Status: Full Code Anesthesia Technique: General Anesthesia Airway Planned: Endotracheal Tube Monitors Used: Standard Monitors Preoperative Comments:: 88 yo male for CHI. Sig PMHx: afib, CHF, HTN, pacer, lumbar DJD (last CT with multilevel compression and central canal stenosis), former smoker, occ EtOH. Previous Anes: - lap angeli, prop, glide 3, no masking, sig hypotension (induced with 150 mg). - ERCP, easy mask, mac 3 grade 1 Discussed risks and benefits of spinal vs general, given his lumbar CT and spinal stenosis will do GA. pt agrees with plan.
[2023-07-12] MEDS: Lactated Ringers 1,000 ML 80 ML IV (09:05)
[2023-07-12] MEDS: Acetaminophen 500 MG TAB 1000 MG PO (09:05)
[2023-07-12] MEDS: Celecoxib 200 MG CAP 400 MG PO (09:05)
--- NOTE | 2023-07-12 10:34 | DSE_ITS ---
Date of service: 07/12/23 Time of Service: 12:46 Discharge Plan Disposition Patient Disposition: Home Condition: Good Discharge Details Reason For Visit: Right hip DJD Attending Provider: Richard Griffin Primary Care Provider: Ramírez Treadwell [place] Meds and New Rx's Prescriptions: New celecoxib [Celebrex] 200 mg capsule 200 mg PO BID PRNQty: 60 0RF Rx Instructions: Take one tablet twice daily for pain and inflammation aspirin 81 mg tablet,delayed release (DR/EC) 81 mg PO BID 30 Days Qty: 60 0RF tramadol 50 mg tablet 50 mg PO Q6H PRN (Reason: severe postoperative pain) Qty: 12 0RF Rx Instructions: Take one tablet up to every 6 hours as needed for severe pain acetaminophen 500 mg tablet 1,000 mg PO Q8H PRN Qty: 90 0RF Rx Instructions: Take two tablets up to every 8 hours as needed for pain pantoprazole 40 mg tablet,delayed release (DR/EC) 40 mg PO DAILY 14 Days Qty: 14 0RF dexamethasone 4 mg tablet 4 mg PO DAILY Qty: 2 0RF Rx Instructions: Take one tablet once daily for two days docusate sodium [Colace] 100 mg capsule 100 mg PO BID Qty: 30 0RF Continued multivitamin [Men's Multi-Vitamin] 1 EACH tablet 1 ea PO DAILY Vitamin C 1,000 MG tablet extended release 1,000 mg PO DAILY calcium carbonate [Calcium 500] 500 MG tablet 1,500 mg PO DAILY simvastatin 20 MG tablet 20 mg PO HS Discontinued ibuprofen 200 MG capsule 400 mg PO BID acetaminophen [Tylenol Extra Strength] 500 MG tablet 500 mg PO BID aspirin 81 MG tablet,chewable 81 mg PO DAILY Hold Instructions: Resume on 03/21/23. Discharge Instructions Additional Instructions: Total Hip Discharge Instructions Activity: The most important activity is to walk. You should try to take short walks a few times a day. You have no restrictions on movement or positioning, but do not try to force what you do. You will find some stiffness and weakness with hip flexion (lifting your knee). Do not try to strengthen this too early, continue to practice walking and stairs and this will come. - Outpatient physical therapy can be helpful to help return you to a normal gait and improve your flexibility and strength. This can start around 2 weeks. For some patients, it?s not necessary. Usually this is determined at the time of discharge or at the first post-operative visit. - You should wear the POOJA hose on both legs for 2 weeks. Dressing: Keep the surgical dressing in place for at least one week. After the first week it may be removed and replace with light gauze and tape or nothing. It may get wet after 3 days but avoid soaking the dressing. If it gets wet, just lightly pat dry. It is important to always keep some gauze between skin folds, especially when you are sitting. Spend some time with the wound exposed when you are lying flat as the incision does wrinkle onto itself. Medications: - You should take Tylenol and an anti-inflammatory Celebrex as your primary pain control medications. If the Celebrex is too expensive or not covered, please call the office for another alternative (Advil/Ibuprofen or Naproxen/Aleve). - You have been prescribed a stronger pain medication Tramadol for breakthrough pain, take as needed as prescribed. - You have also been prescribed a stomach acid reduction agent Pantoprozole to help reduce stomach acid and reflux. - You have also been prescribed Decadron to help with post-operative nausea and pain. You will take this for two days starting tomorrow. - You will be taking Aspirin 81mg twice a day for DVT prevention unless instructed otherwise. - If you have constipation you should take Colace (which has been prescribed) or Miralax (which is available [id number]-ddi-uidlycu). It takes most people 3-4 days to have a bowel movement. Follow-up: 2 weeks If you have any acute concerns or questions, please do not hesitate to contact the office at [phone]. You may contact Dr. Griffin with any questions after hours through the hospital at [phone] or on his cell phone at [phone]. Stand Alone Forms: Anesthesia Discharge Inst., Lisbet Sanders (U) Referrals: Richard Griffin MD [ [facility] STAFF PHYSICIAN] - Equipment/Supplies: Walker Activity:: Activity as Tolerated Remove Dressings/Wound Care:: Do Not Remove Shower/Bathe:: 72 hours and Cover Diet:: As Tolerated Discharge Orders Discharge Orders: Discharge Order (Routine); Ordered 07/12/23 Ordered By: Jailyn Barroso Discharge Data Discharge Date/Time-TO BE ENTERED AT DEPARTURE: 12/28/23 15:38 DS: Summary Time Spent with Patient providing and/or coordinating discharge services: Less than 30 minutes Status at Discharge Functional status at discharge: uses cane/walker Overall status at discharge: patient is progressing back to baseline Mental Status: mental status grossly normal Speech and Movement: speech and movement normal Mood: congruent mood Affect: normal affect Exam Psych Mental Status: mental status grossly normal Speech and Movement: speech and movement normal Mood: congruent mood Affect: normal affect DS: Data Vitals/I&O Vitals and I&O: Vital Signs Temperature 98.2 F 07/12/23 09:09 Pulse 87 07/12/23 09:09 Pulse Rhythm Regular 07/12/23 09:09 Respiratory Rate 16 07/12/23 09:09 Respiratory Depth Normal 07/12/23 09:09 Blood Pressure 146/76 H 07/12/23 09:09 Pulse Oximetry 98 07/12/23 09:09 Oxygen Delivery Method Room Air 07/12/23 09:09 Oxygen Flow Rate 0 07/12/23 09:09 Pain Level 3 07/12/23 09:09 Intake & Output 07/11/23 07/11/23 07/12/23 11:59 23:59 11:59 Weight 185 lb 0.014 oz 185 lb 0.014 oz PFSH All Active Problems Atrial fibrillation (Chronic) Arthritis of right hip (Chronic) 7 cc of bupivacaine only intraarticular injection under u/s: 06/14/23 Chronic low back pain with right-sided sciatica (Acute) DJD (degenerative joint disease), lumbar (Acute) CHF (congestive heart failure) (Chronic) Hypertension (Chronic) Hyperlipidemia (Acute) Surgical History 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 S/P laparoscopic cholecystectomy Hx of cataract extraction Social History Smoking/Tobacco Use Status: Former Tobacco Use Quit Date: 07/16/79 Smoking risk assessment performed?: Yes Alcohol Intake: current Alcohol Intake frequency: holidays/special occasions only Alcohol type: other Drug use: Never Substance use type: does not use Housing: house Do you feel safe at home: Yes Do you feel safe in your relationship?: Yes Time Spent with Patient Time Spent with Patient: <45 minutes Time was spent: preparing to see the patient(eg.review tests), ordering medications,tests, procedures and counseling the patient
[2023-07-12] MEDS: ceFAZolin 2 GM/50 ML BAG IVPB (10:48)
--- NOTE | 2023-07-12 12:12 | DI.RAD_ITS ---
Exam(s) XR HIP RT IN OR EXAM: XR HIP RT IN OR CLINICAL HISTORY: arthritis right hip. TECHNIQUE: 2D and realtime digital imaging was performed. COMPARISON: CR XR PELVIS AP from 07/05/2023 FINDINGS: Hard copy images show placement of a right total hip prosthesis. The alignment appears satisfactory. Please see procedure note for details. Fluoro time: 46.6seconds RADIATION DOSE DELIVERED: Ka,r=6.35 mGy
--- NOTE | 2023-07-12 12:31 | W.BRIEF ---
Date of service: 07/12/23 Time of Service: 11:15 Brief Operative Note Procedure/Pre-Op Diagnoses: Operation Date: 07/12/23 11:05 Actual Procedures p Hip Total Hip Anterior, ACTIS(Right) - Richard Griffin MD Pre-Op Diagnosis: right hip arthritis Post-Op Diagnosis: right hip arthritis Estimated Blood Loss Output, Estimated Blood Loss 250 Amount Complications Complications: None
--- NOTE | 2023-07-12 13:03 | W.ANESPOSTOP ---
Postoperative Evaluation Date, Time and Location Date Performed: 07/12/23 Time Performed: 13:03 Patient Location: PACU Vital Signs Most Recent Imported Vital Signs: Most Recent Vital Signs Temp Pulse Resp BP Pulse Ox 36.3 C L 63 17 164/70 H 100 07/12/23 12:51 07/12/23 12:51 07/12/23 12:51 07/12/23 12:51 07/12/23 12:51 Pain Score Most Recent Pain Score: Most Recent Pain Score Pain Level [Right Hip] 3 07/12/23 09:09 Pain Level 5 07/12/23 12:51 Assessment Mental Status: Awake (Alert & Oriented to Patient Baseline) Airway and Respiratory Function: Patent airway with normal (patient baseline) respiratory exam Cardiovascular Function: Hemodynamically Stable Hydration Status: Adequately Hydrated Nausea & Vomiting: No Nausea or Vomiting Pain: Pain is tolerable per patient Peripheral Nerve Block: Patient did not receive a nerve block
[2023-07-12] MEDS: traMADol 50 MG TAB PO (13:30)
--- NOTE | 2023-07-12 14:10 | IN_ITS ---
PT Notes Visit Reasons: Right hip DJD Physical Therapy Day Surgery Initial Evaluation Date: 07/12/2023 Referring Doctor: FANNIE Ervin PT Orders: PT CONSULT: S/P Ortho surgery Precautions: WBAT on the right LE with AD. Patient Profile/Admitting Diagnosis: Ramírez is an 88-year-old male with degenerative joint disease of the right hip and is status post right total hip arthroplasty on postoperative day 0. PMHX: Surgical History (Updated 07/05/23 @ 11:14 by Jailyn Barroso) 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 S/P laparoscopic cholecystectomy Hx of cataract extraction Social History/Home Situation: Lives with in a private home with 3 steps to enter through the garage with rails on both sides. Independent with all aspects of ADLs using single-point cane prior to surgery. 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 Equipment Owned/DME: Three 4WW and 2 SPCs Subjective: Reports 3/10 pain on the right hip at rest and with movement. Denied headache, chest pain, and lightheadedness throughout session. Objective: General Observation: Resting in bed. Mepilex Ag over surgical incision. TEDS to be legs. Mental Status: A&O x 4 Pain: As above ROM: Right Lower Extremity: Hip flexion WFL. Hip abduction WFL. Knee flexion WFL. Ankle dorsiflexion WFL. Ankle plantarflexion WFL. Left Lower Extremity: Hip flexion WFL. Hip abduction WFL. Knee flexion WFL. Ankle dorsiflexion WFL. Ankle plantarflexion WFL. Strength: Right Lower Extremity: Hip flexors 4/5. Hip abductors 4/5. Knee flexors 4/5. Kn ee extensors 4/5. Ankle dorsiflexors 5/5. Ankle plantarflexors 5/5. Left Lower Extremity:Hip flexors 5/5. Hip abductors 5/5. Knee flexors 5/5. Knee extensors 5/5. Ankle dorsiflexors 5/5. Ankle plantarflexors 5/5. Sensation: Intact as to pain and light pressure in BLE Bed Mobility/Transfers: Minimal cueing provided for use of B hands as needed for support, movement sequence, AD management, and and posture to reduce fall risk and minimize pain report Supine to sit standby assist Sit to stand contact-guard assist with FWW Stand to sit standby assist with FWW Bed to chair standby assist with FWW Gait: Facilitated safe and correct performance of level surface ambulation using front wheeled walker with step to gait pattern requiring only contact-guard assist with minimal verbal cues given for limb advancement, AD management, and overall safety. Decreased hip extension on the R but no LOB. Complained of minimal increase in pain on the R hip with R midstance. Stairs: Guided patient with safe negotiation of 6 x 4 inch steps and 4 x 6 inch steps while holding onto bilateral rails with step to gait pattern with minimal verbal cues provided for correct movement sequence. Standby assist provided. Balance: Static Sitting: Normal Dynamic Sitting: Normal Static Standing: Fair Dynamic Standing: Fair Special Tests: Mobility Limitations Standardized Measure [facility]-PAC 6 clicks Basic Mobility Inpatient Short Form: Raw Score: 22 CMS Score: 21% deficit Informed Consent/Education: Patient instructed in purpose of PT consult. Packet containing [facility] exercise protocol has been given to patient. Education and training on initial set of exercises that can be done at home have been completed with patient. Trained patient with correct performance of exercises below to maximize motor control, joint flexibility, soft tissue extensibility of the R hip musculature to facilitate return to independent functional mobility performance. Access Code: [email or web address] URL: [email or web address] Date: 07/12/2023 Prepared by: Apple Henson Exercises - Gluteal Sets - 1 x daily - 7 x weekly - 1 sets - 10 reps - 5 hold - Supine Heel Slide - 1 x daily - 7 x weekly - 1 sets - 10 reps - 5 hold - Supine Ankle Pumps - 1 x daily - 7 x weekly - 1 sets - 10 reps - 5 hold - Seated March - 1 x daily - 7 x weekly - 1 sets - 10 reps - 5 hold - Seated Long Arc Quad - 1 x daily - 7 x weekly - 1 sets - 10 reps - 5 hold ASSESSMENT: Patient requires the use of a front wheeled walker for mobility ADL performance to maximize independence and reduce fall risk. Patient presents with clinical signs and symptoms consistent with current/admitting diagnoses that have resulted to mobility limitations, gait instability, generalized weakness, and impairment of motor control as demonstrated by the following impairment level findings: 1. Decreased strength to R hip major muscle groups 2. Impaired standing balance Impairments are contributing to the following functional limitations: 1. Inability to safely ambulate without assistive device 2. Increase completion time for mobility ADL performance 3. Increased fall risk Patient is assessed as a 20877 moderate complexity based on the following: History: 88-year-old male with impairment level findings, functional limitations, and past medical history as indicated above Examination: Demonstrable impairment in strength, balance, and mobility level with underlying impairments and functional limitations as documented above Presentation: Evolving Decision Makin moderate complexity Goals: N/A. PT evaluation and 1-2 treatment sessions only for functional mobility training using recommended AD and for HEP instruction. Plan of Care/Treatment Plan: N/A. PT evaluation and 1-2 treatment session only for functional mobility training using recommended AD and for HEP instruction. DISCHARGE RECOMMENDATIONS: Home when medically cleared by orthopedic surgeon. Recommend outpatient PT services in order to optimize functional mobility outcomes and facilitate return to independent community ambulation without an assistive device. TREATMENT CODE/TIME: 08613 x 20 minutes for 1 unit, 37042 x 18 minutes for 1 unit beginning at 14:10 PM. Thank you for the opportunity to participate in the care of this patient. Please sign an return this page within 30 days if you agree with the above POC. Thank you! Physician Signature Date [facility]
--- NOTE | 2023-07-12 15:54 | W.PM.OP ---
Date of service: 07/12/23 Time of Service: 11:00 Operative Note Operative Note DATE OF PROCEDURE: 07/12/23 PRE-OP DIAGNOSIS: Right Hip Osteoarthritis POST-OP DIAGNOSIS: same PROCEDURE: Right Anterior Total Hip Arthroplasty with Intraoperative Navigation SURGEON: Richard Griffin COPY CUTTER: Jailyn Barroso ANESTHESIA TYPE: Spinal Refer to Anesthesia Record ESTIMATED BLOOD LOSS: 250 PATHOLOGY: none sent TOURNIQUET TIME: 0 COMPLICATIONS: None Patient was transported to: PACU Patient's condition: stable Implants: 1. Depuy [place] Acetabular Component, 60mm 2. Depuy Acetabular Liner, [id number] 3. Depuy Actis Standard Collared Femoral Stem, Size 8 4. Depuy Altrx Ceramic Femoral Head, Size 36+1.5mm Indications: I have seen Ramírez in clinic for symptoms of hip arthritis, confirmed with radiographic findings. He has exhausted nonoperative methods and was having significant limitations in daily function and desired better function and less pain. I discussed the technical details of a hip replacement. I explained the risks of the procedure to include, but not limited to, bleeding, infection, pain, stiffness, fracture, damage to nerves and vessels, damage to muscles and tendons, loosening, instability, leg length inequality, need for repeat procedure, blood clot and cardiopulmonary demise. Despite these risks, Ramírez elected to proceed. Findings: There was significant signs of arthritis throughout the hip with severe deformity of the femoral head. Procedure Description: Ramírez was greeted in the preoperative holding area where the correct side was identified and marked. The consent was reviewed with the patient and signed. The history and physical was updated. All questions were answered. He was taken back to the operating room. A general anesthestic was then administered. The feet were wrapped with cast padding and Coban and then placed into the boot liners and then into the boots. Care was taken to protect the skin and make sure the heels were fully down and the boots were stable. The patient was then positioned onto the HANA table. Both legs were held in a neutral position. SCDs were applied. The patient was then slid down onto a peroneal post. Prophylactic antibiotics in the form of Cefazolin were administered. 1g of Tranxemic Acid was given intravenously within 30 minutes of incision. The right leg was then prepped with Chloraprep and draped in a standard fashion. A second prep with Chloraprep was performed prior to placement of a shower-curtain type drape with Iodine impregnated skin protection. A timeout to confirm correct identity, side and site, procedure, allergies, anesthesia, and medical concerns was performed. An obliquely oriented incision was made starting lateral to the ASIS and running distal over the Tensor Fascia Chelo (TFL) muscle belly toward the fibular head, approximately 10cm. The skin and soft tissue was dissected sharply, through Maci?s fascia, and to the fascia of the TFL. With the fascia and superior border of the IT band identified, the fascia was incised with a new knife just above any perforators from the IT band. The TFL muscle belly was bluntly dissected away from the fascia and moved laterally. The fat between TFL and rectus was identified to ensure the dissection was not within the TFL. Blunt dissection created space between abductors and the capsule and retractor was placed over the lateral femoral neck. The fibers of the rectus femoris tendon were identified and these were freed from the anterior capsule. A second cobra retractor was placed around the medial femoral neck. The TFL was further retracted laterally to show the deep fascia. Careful dissection through this layer identified three main crossing vessels of the lateral femoral circumflex. These were cauterized in multiple locations and then cut without any noticeable bleeding. The TFL was further released bluntly from the deep fascia to expose anterior hip capsule and fat The Alfredo orthopaedic retractor was then placed beneath the TFL and against sartorius and medial soft tissues to protect and retract the soft tissues. A T-capsulotomy was then performed starting at the superior lateral acetabulum and moving distally to the intertrochanteric ridge. These capsular flaps were tagged with a No. 1 Ethibond and elevated from within. The capsular flaps were released to the shoulder of the lateral neck and to the lesser trochanter to give excellent visualization of the proximal femur. A neck osteotomy was performed using an oscillating saw based on preoperative templates. This cut started in the shoulder and of the lateral neck and exited medially. The saw was at all times directed medially to avoid injury to the greater trochanter. Gross traction was applied to the leg and the osteotomy opened. The femoral head was removed with a corkscrew, making sure to protect the TFL on its exit. There was significant deformity of the femoral head. Traction was released after head removal. This was measured on the back table to determine the starting reamer size. Portions of the rectus obscuring visualization were minimally elevated off the superior acetabulum. An anterior retractor was placed over the anterior wall between capsule and labrum and attached to the Gripper retraction system. The femur was rotated to 90 degrees and medial capsule was fully released until the lesser trochanter was palpable and visible; the femur was returned to 30 degrees. A posterior retractor was placed similarly between capsule and labrum. This provided excellent visualization. The contents of the cotyloid fossa were removed with electrocautery and the labrum was removed with a knife. There was a notable floor osteophyte. There was significant chondromalacia of the superior acetabulum. Acetabular reaming began with a 54mm reamer. This first reaming was directed anterior to posterior and medial to get down to the true floor. This was inspected and reamed until the true floor was reached. The anterior retractor was then released and entry and exit was provided by traction on the capsular flaps. I then reamed sequentially up to a 60mm reamer where good fit was obtained. The larger reamers were oriented based on anatomical reference of the anterior and lateral altamirano to ensure proper abduction and anteversion. Positioning and size was confirmed with the fluoroscopy. A 60mm Depuy [place] acetabular component was selected. The acetabulum was reamed around the periphery with the selected acetabular size to prevent a rim fit. The deep tissues were irrigated. The acetabular component was then impacted in a position of about 40-45 degrees of abduction and 15-20 degrees of anteversion, using the patient?s anatomy as the ultimate landmark. Fluoroscopy was used to confirm this. There was excellent pony cylinder press operator of the acetabular component and the inserting handle was removed. A primary acetabular screw was placed into the ilium by drilling through one of the holes in the acetabular component. This was measured and an approrpriately sized screw was placed with excellent purchase. It was checked not to be proud. The acetabular liner, Depuy [id number] polyethylene liner, was inserted and lined up with the tines of the acetabular component. There was no soft tissue interposition. The liner was then impacted into position and confirmed to be well-seated. A portion of the ann-articular cocktail was then injected around the acetabulum into the capsule and periosteum. This cocktail consisted of 123mg of Ropivacaine, 0.25mg of Epinephrine, 0.04mg of Clonidine, and 15mg of Ketorolac, diluted to 50cc. The leg was rotated to 120 degrees. Any remaining medial capsule was released until the lesser trochanter was easily palpable. A retractor was placed medially. The lateral capsule was further released into the shoulder to allow access to the greater trochanter. A Schmitz retractor was placed over the greater trochanter which allowed the trochanter to flip in front of the capsule for excellent exposure. The leg was brought down into maximal extension and 20 degrees of adduction while ensuring there was no impingement on the acetabulum. Any remnant capsule within the trochanter was released. Piriformis and obturator externis were identified and protected. There was excellent access to the proximal femur. The lateral neck remnant was removed with a rongeur. A blunt canal probe was used to identify the canal and trajectory for later broaching. A box osteotome initiated the broach course. A small curved rasp and a curved curette were used to work laterally. Broaching then began with a starter Actis broach. This was inserted manually around the trochanter and into the canal before mallet blows. The broach was seated to the neck cut level based on the neck cut and the preoperative template. Sequential broaching was continued with the Pili Popse pneumatic broaching device until a tight fit was obtained with good rotational control of the femur. A trial standard neck was inserted along with a +1.5 trial head. The leg was brought out of extension and adduction and then reduced with traction and internal rotation. The leg was stable anteriorly in a position of 30 degrees of extension and 90 degrees of external rotation. Fluoroscopy was used to ensure there was no fracture and the stem was seated well. Leg lengths were checked with an AP pelvis and pelvic reference points. [employer] navigation system was used to confirm appropriate positioning and leg length and offset. Once content with the desired offset and leg lengths, the leg was brought back into extension, external rotation and adduction. The periosteum and surrounding tissue was injected with remaining portion of the ann-articular cocktail. The proximal femur was irrigated as well as the deep tissues. The Q.branchuy PlayMotionis standard collared stem, size 8, was then manually inserted into the proximal femur making sure to control rotation. It was then malleted into position with light blows, giving breaks to allow bone expansion and decrease risk of fracture. The selected Depuy Altrx Ceramic Head, size 36+1.5mm, was then placed onto the clean and dry trunnion and secured with impaction onto the tapered fit. The leg was brought back out of extension and adduction and reduced with traction and internal rotation. Stability was confirmed with no shuck at 90 degrees of external rotation and 30 degrees of extension. No impingement through range of motion arc. Final x-ray images were obtained with fluoroscopy to confirm adequate positioning and no intraoperative fracture. The deep tissues were thoroughly irrigated with Surgiphor, betadine solution. This was allowed to sit in the wound for 3 minutes before being thoroughly irrigated out with normal saline. The capsule was then reapproximated with the previously placed Ethibond sutures. The TFL fascia was finally closed with a No. 2 Stratafix, barbed suture. Deep tissues were then reapproximated with 0 Vicryl and a running 2-0 Vicryl. The skin was closed with a running 4-0 Monocryl in a subcuticular fashion. This was reinforced with skin glue. A Mepilex silver dressing was applied. At the end of the case, all counts were correct. Ramírez was transferred to the hospital bed without difficulty and suffering no apparent complication. Ramírez has a good prognosis. Physical therapy will start today and without restrictions, weight-bearing as tolerated. Aspirin 81mg BID will be used for DVT prophylaxis.
== END 2023-07-12 15:38 | disposition home or self-care (01) ==
PROVIDERS: PCP Neuromusculoskeletal Medicine & OMM; Visit Provider Student in an Organized Health Care Education/Training Program
PROC: (CPT 27130; principal; 2023-07-12 10:45)
DX: M16.11 Unilateral primary osteoarthritis, right hip (principal); I10 Essential (primary) hypertension; Z87.891 Personal history of nicotine dependence
CPT/HCPCS: 20985; 27130; C1776; 97162; 97530; 73501; J0690; J1100; J2001; J2405; J2704

== ENCOUNTER 2023-07-26 15:11 | Outpatient (CLI) | payer MEDICARE, SELFPAY ==
--- NOTE | 2023-07-26 11:00 | DI.RAD_ITS ---
Exam(s) XR HIP RT COMPLETE AP PELVIS EXAM: XR HIP RT COMPLETE AP PELVIS CLINICAL HISTORY: 1st post op S/P R [facility]. TECHNIQUE: 2D digital imaging was performed. COMPARISON: XA XR HIP RT IN OR from 07/12/2023 FINDINGS: Two views There is satisfactory position alignment of the components of the recently placed right hip prosthesi s. No fractures nor loosening evident. IMPRESSION: Stable satisfactory appearance DATA REPOSITORY: RADIATION DOSE DELIVERED:
== END 2023-07-26 15:12 | disposition home or self-care (01) ==
LOC: DIORS 15:11
PROVIDERS: PCP Neuromusculoskeletal Medicine & OMM; Referring Provider Neuromusculoskeletal Medicine & OMM
DX: Z96.641 Presence of right artificial hip joint (principal); Z47.1 Aftercare following joint replacement surgery
CPT/HCPCS: 73502

== ENCOUNTER → 2023-08-23 10:55 | Outpatient (BNVA) | payer MEDICARE, SELFPAY | PROVIDERS: PCP Neuromusculoskeletal Medicine & OMM; Referring Provider Neuromusculoskeletal Medicine & OMM | DX: Z47.1 Aftercare following joint replacement surgery (principal); Z96.641 Presence of right artificial hip joint ==

== ENCOUNTER 2024-07-14 15:43 | Outpatient (CLI) | payer MEDICARE, SELFPAY ==
--- NOTE | 2024-07-14 10:40 | DI.RAD_ITS ---
Exam(s) XR HIP RT AP LAT ONLY EXAM: XR HIP RT AP LAT ONLY INDICATION: ANNUAL F/U R [facility]. COMPARISON: CR XR HIP RT COMPLETE AP PELVIS from 07/26/2023 TECHNIQUE: 2D digital imaging was performed. Two views. FINDINGS: Stable alignment right hip prosthesis. No abnormal bony lucencies. DATA REPOSITORY: RADIATION DOSE DELIVERED:
== END 2024-07-14 15:44 | disposition home or self-care (01) ==
LOC: DIORS 15:43
PROVIDERS: PCP Neuromusculoskeletal Medicine & OMM; Referring Provider Neuromusculoskeletal Medicine & OMM; Visit Provider Student in an Organized Health Care Education/Training Program
DX: Z47.1 Aftercare following joint replacement surgery (principal); Z96.641 Presence of right artificial hip joint
CPT/HCPCS: 99213; 73502